=== PATIENT | female | born 1950 | race African-American/Black ===

== ENCOUNTER 2018-09-03 04:12 | Inpatient (IN) | payer OTHER, BC ==
[2018-09-03] MEDS ORDERED: SODIUM CHLORIDE 1,000 ML IV STA (04:38)
[2018-09-03 05:17] LABS: BASO % 1.1 % (0-2.0); EOS % 3.2 % (0-4.5); HEMATOCRIT 34.8 % (32.4-45.2); HEMOGLOBIN 12.1 GM/dL (10.7-15.3); LYMPH % 19.3 % (8-40); MCH 30.9 pg (25.7-33.7); MCHC 34.8 g/dl (32.0-36.0); MEAN CELL VOLUME 88.8 fl (80-96); MEAN PLT VOLUME 8.3 fl (7.5-11.1); MONO % 14.6 % (3.8-10.2); NEUT % 61.8 % (42.8-82.8); PLATELET COUNT 262 K/MM3 (134-434); RBC 3.92 M/mm3 (3.60-5.2); RDW 12.7 % (11.6-15.6); WHITE BLOOD COUNT 3.7 K/mm3 (4.0-10.0)
[2018-09-03 05:33] LABS: INR 1.01 (0.83-1.09); PROTHROMBIN TIME (PATIENT) 11.9 SEC (9.7-13.0)
[2018-09-03 05:35] LABS: ACTIVATED PTT 36.2 SECONDS (25.2-36.5)
[2018-09-03 05:49] LABS: ALBUMIN 3.9 g/dl (3.4-5.0); ALK PHOS 85 U/L (45-117); ANION GAP 8 MMOL/L (8-16); BILIRUBIN,TOTAL 0.3 mg/dL (0.2-1); BLOOD UREA NITROGEN 14 mg/dL (7-18); CALCIUM 8.7 mg/dL (8.5-10.1); CHLORIDE 108 mmol/L (98-107); CO2 27 mmol/L (21-32); CREATININE 0.8 mg/dL (0.55-1.3); GLUCOSE,RANDOM 119 mg/dL (74-106); POTASSIUM 4.4 mmol/L (3.5-5.1); SGOT/AST 29 U/L (15-37); SGPT/ALT 19 U/L (13-61); SODIUM 143 mmol/L (136-145); TOT PROT 7.8 g/dl (6.4-8.2)
--- NOTE | 2018-09-03 06:04 | PDOC ---
Attending Attestation - Resident Resident Name: Paulo Smith - ED Attending Attestation I have performed the following: I have examined & evaluated the patient, The case was reviewed & discussed with the resident, I agree w/resident's findings & plan, Exceptions are as noted - HPI HPI: 09/03/18 07:26 67F pmh of htn, pre-dm here with sudden onset of hemoptysis in the middle of the night. a/w 5 lbs weight loss over the past month and chills w/o fever over the last 2 days. No cough, no sputum, no fever, no sick contacts, no recent travel, not institutionalized, no surgery, no hx of ca - Physicial Exam PE: 09/03/18 07:29 Decreased breath sounds, R>L Increased wob - Medical Decision Making 09/03/18 07:30 Concern for tb, vs pna vs hemorrhage vs ca CTA with possible pna vs hemorrhage per IOC will treat for pna, f/u in house radiology read admit
--- NOTE | 2018-09-03 06:29 | PDOC ---
History of Present Illness - General Chief Complaint: Hemoptysis Stated Complaint: VOMITING BLOOD Time Seen by Provider: 09/03/18 04:16 - History of Present Illness Initial Comments: 09/03/18 06:42 67F with pmh of hypertension and pre-diabetes presents to the ED after awakening in the middle of the coughing a significant amount of blood. This is the first time this ever happens to her. Coughs only blood with little mucus. Also endorses 5lbs weight loss over the past month and chills over the past 2 days. No recent travel, no recent visits from foreign countries, no sick contacts. No recent surgeries, cancer treatments or new medications. Former smoker 30 years ago, 4pack-year Used to work as a nurse, retired. No traumas Past History - Past Medical History Allergies/Adverse Reactions: Allergies Allergy/AdvReac Type Severity Reaction Status Date / Time No Known Allergies Allergy Verified 09/03/18 04:25 Home Medications: Ambulatory Orders Lisinopril 20 mg PO ASDIR 09/03/18 COPD: No DVT: No Dementia: No Diabetes: No (PRE DIABETIC) HTN: Yes - Immunization History Immunization Up to Date: Yes - Suicide/Smoking/Psychosocial Hx Smoking History: Former smoker Have you smoked in the past 12 months: No Information on smoking cessation initiated: No Hx Alcohol Use: No Drug/Substance Use Hx: No *Physical Exam - Vital Signs Last Vital Signs Temp Pulse Resp BP Pulse Ox 97.7 F 91 H 18 142/99 96 09/03/18 06:24 09/03/18 06:24 09/03/18 06:24 09/03/18 06:24 09/03/18 06:24 - Physical Exam General Appearance: Yes: Nourished, Appropriately Dressed. No: Apparent Distress HEENT: positive: EOMI, JHONNY, Other ("congenital "reversed" palate ) Respiratory/Chest: positive: Decreased Breath Sounds. negative: Chest Tender, Respiratory Distress, Labored Respiration Cardiovascular: positive: Regular Rhythm, S1, S2, Tachycardia Gastrointestinal/Abdominal: positive: Normal Bowel Sounds, Flat, Soft. negative : Tender Extremity: positive: Normal Capillary Refill, Normal Inspection, Normal Range of Motion Integumentary: positive: Normal Color, Dry, Warm Neurologic: positive: Fully Oriented, Alert, Normal Mood/Affect, Normal Response , Motor Strength /5 ED Treatment Course - LABORATORY CBC & Chemistry Diagram: 09/03/18 05:00 09/03/18 05:00 - ADDITIONAL ORDERS Additional order review: Laboratory Results 09/03/18 09/03/18 05:00 05:00 PT with INR 11.90 INR 1.01 PTT (Actin FS) 36.2 Sodium 143 Potassium 4.4 Chloride 108 H Carbon Dioxide 27 Anion Gap 8 BUN 14 Creatinine 0.8 Creat Clearance w eGFR 71.99 Random Glucose 119 H Calcium 8.7 Total Bilirubin 0.3 AST 29 ALT 19 Alkaline Phosphatase 85 Total Protein 7.8 Albumin 3.9 09/03/18 05:00 RBC 3.92 MCV 88.8 MCHC 34.8 RDW 12.7 MPV 8.3 Neutrophils % 61.8 Lymphocytes % 19.3 Monocytes % 14.6 H Eosinophils % 3.2 Basophils % 1.1 - RADIOLOGY Radiology Studies Ordered: Category Date Time Status CHEST CTA [CT] Stat CT Scan 09/03/18 05:53 Ordered CHEST PA & LAT [RAD] Stat Radiology 09/03/18 04:41 Taken - Medications Given in the ED: ED Medications Discontinued Medications Generic Name Dose Route Start Last Admin Trade Name Freq PRN Reason Stop Dose Admin Sodium Chloride 1,000 mls @ 1,000 mls/hr 09/03/18 04:38 09/03/18 05:26 Normal Saline - IV 09/03/18 05:37 1,000 mls/hr ASDIR STA Administration Medical Decision Making - Medical Decision Making 09/03/18 07:14 Cancer vs TB vs PE vs other infectious etiology vs mitral stenosis vs toxic inhalation (?patient now remember a weird new oder after they replaced her air bag in her car???) We will investigate tb/cancer with cxr however we are expecting to get a ct chest regardless, possibly CTA if cxr unremarkable to r/o PE No anemia on cbc, wbc 3.7. coags wnl. CXR unremarkable for acute processes. EKG: normal sinus, normal EKG Well's score 5.5, rising suspicion for PE. CTA read pending (imaging land acquisition specialist reads rlq as consolidation/pneumonia) Will treat empirically for pneumonia. Patient signed out to Dr. Szymanski. 09/03/18 07:21 *DC/Admit/Observation/Transfer Diagnosis at time of Disposition: Hemoptysis - Referrals - Patient Instructions - Post Discharge Activity
[2018-09-03] MEDS ORDERED: CEFTRIAXONE 1 GM in DEXTROSE 5%-WATER - 100 ML IVPB ONE (07:00)
[2018-09-03] MEDS ORDERED: AZITHROMYCIN IVPB 500 MG in DEXTROSE 5%-WATER - 250 ML IVPB ONE (07:00)
--- NOTE | 2018-09-03 07:19 | PDOC ---
*Physical Exam - Vital Signs Last Vital Signs Temp Pulse Resp BP Pulse Ox 97.7 F 91 H 18 142/99 96 09/03/18 06:24 09/03/18 06:24 09/03/18 06:24 09/03/18 06:24 09/03/18 06:24 - Physical Exam Respiratory/Chest: positive: Rapid RR, Crackles (right mid and lower). negative : Chest Tender, Lungs Clear, Normal Breath Sounds, Respiratory Distress, Accessory Muscle Use, Labored Respiration, Rhonchi, Stridor, Wheezing ED Treatment Course - LABORATORY CBC & Chemistry Diagram: 09/03/18 05:00 09/03/18 05:00 - ADDITIONAL ORDERS Additional order review: Laboratory Results 09/03/18 09/03/18 05:00 05:00 PT with INR 11.90 INR 1.01 PTT (Actin FS) 36.2 Sodium 143 Potassium 4.4 Chloride 108 H Carbon Dioxide 27 Anion Gap 8 BUN 14 Creatinine 0.8 Creat Clearance w eGFR 71.99 Random Glucose 119 H Calcium 8.7 Total Bilirubin 0.3 AST 29 ALT 19 Alkaline Phosphatase 85 Total Protein 7.8 Albumin 3.9 09/03/18 05:00 RBC 3.92 MCV 88.8 MCHC 34.8 RDW 12.7 MPV 8.3 Neutrophils % 61.8 Lymphocytes % 19.3 Monocytes % 14.6 H Eosinophils % 3.2 Basophils % 1.1 - Medications Given in the ED: ED Medications Discontinued Medications Generic Name Dose Route Start Last Admin Trade Name Freq PRN Reason Stop Dose Admin Sodium Chloride 1,000 mls @ 1,000 mls/hr 09/03/18 04:38 09/03/18 05:26 Normal Saline - IV 09/03/18 05:37 1,000 mls/hr ASDIR STA Administration Medical Decision Making - Medical Decision Making Patient signed out to me from night team pending CTA read - CTA shows R mid and lower consolidation suggestive of PNA 67F with pmh of hypertension and pre-diabetes presents to the ED after awakening in the middle of the coughing a significant amount of blood. VS: Tachycardic, tachypneic, hypertensive WBC - 3.7 CTA - RLL PNA - Patient to receive Abx in ED and then admitted to hospital for further care PCP: Williams - admits to [facility] Montgomery Call placed to Dr. Montgomery's service for admission. Bobby - the power plant operator apprentice for Dr. Montgomery's service says that hospitalist is injection molding machine setter for Dr. Montgomery Hospitalist responded saying patient will be admitted to [facility] at [address] Montgomery's office for admission at 9 am Patient accepted to Dr[address] Montgomery's service. *DC/Admit/Observation/Transfer Diagnosis at time of Disposition: Hemoptysis, Right lower lobe pneumonia, Right middle lobe pneumonia - Discharge Dispostion Condition at time of disposition: Stable Decision to Admit order: Yes - Referrals - Patient Instructions - Post Discharge Activity
[2018-09-03] MEDS ORDERED: AZITHROMYCIN IVPB 500 MG/250 ML BAG IVPB ONE (08:41)
[2018-09-03] MEDS ORDERED: CEFTRIAXONE 1 GM/50 ML BAG ONE (08:41)
--- NOTE | 2018-09-03 10:20 | EKG ---
Test Reason : Blood Pressure : / mmHG Vent. Rate : 092 BPM Atrial Rate : 092 BPM P-R Int : 130 ms QRS Dur : 094 ms QT Int : 358 ms P-R-T Axes : 060 010 028 degrees QTc Int : 442 ms NORMAL SINUS RHYTHM NORMAL ECG NO PREVIOUS ECGS AVAILABLE Confirmed by MARK KEITH, TOM ([id number]) on 09/03/2018 10:20:40 AM Referred By: Confirmed By:TOM FLORES MD
[2018-09-03] MEDS ORDERED: ACETAMINOPHEN 325 MG TABLET (FP) PO PRN (11:48)
--- NOTE | 2018-09-03 11:56 | HP ---
Admitting History and Physical - Primary Care Physician PCP: Lynnette Kramer - Admission Chief Complaint: coughing blood History of Present Illness: patient seen and examined by me in the emergency room Chart reviewed and case discussed with emergency room physician Emergency room records--- and I concur 67F with pmh of hypertension and pre-diabetes presents to the ED after awakening in the middle of the coughing a significant amount of blood. This is the first time this ever happens to her. Coughs only blood with little mucus. Also endorses 5lbs weight loss over the past month and chills over the past 2 days. No recent travel, no recent visits from foreign countries, no sick contacts. No recent surgeries, cancer treatments or new medications. Former smoker 30 years ago, 4pack-year Used to work as a nurse, retired. CTA done in the ER----was negative for pulmonary embolism Showed right middle and lower lobe pneumonia Given Rocephin and Zithromax in the emergency room To BE admitted to the floor Patient comfortable feels better Denies chest pain Breathing okay History Source: Patient Limitations to Obtaining History: No Limitations - Smoking History Smoking history: Former smoker Have you smoked in the past 12 months: No - Alcohol/Substance Use Hx Alcohol Use: No Home Medications - Allergies Allergies/Adverse Reactions: Allergies Allergy/AdvReac Type Severity Reaction Status Date / Time No Known Allergies Allergy Verified 09/03/18 04:25 - Home Medications Home Medications: Ambulatory Orders Lisinopril 20 mg PO ASDIR 09/03/18 Review of Systems Findings/Remarks: see [place] Physical Examination Vital Signs: Vital Signs Temperature 98.9 F 09/03/18 11:30 Pulse Rate 91 H 09/03/18 06:24 Respiratory Rate 18 09/03/18 06:24 Blood Pressure 142/99 09/03/18 06:24 O2 Sat by Pulse Oximetry (%) 96 09/03/18 06:24 Constitutional: Yes: No Distress, Calm Eyes: Yes: Conjunctiva Clear HENT: Yes: Other (throat clear) Neck: Yes: Supple Cardiovascular: Yes: Regular Rate and Rhythm Respiratory: Yes: Diminished Gastrointestinal: Yes: Normal Bowel Sounds, Soft Edema: No Neurological: Yes: Alert Psychiatric: Yes: Alert Labs: CBC, BMP 09/03/18 05:00 09/03/18 05:00 Imaging - Results Chest X-ray: Report Reviewed Cat Scan: Report Reviewed EKG: Report Reviewed Problem List - Problems (1) Hemoptysis Code(s): R04.2 - HEMOPTYSIS (2) Right lower lobe pneumonia Code(s): J18.1 - LOBAR PNEUMONIA, UNSPECIFIED ORGANISM (3) Right middle lobe pneumonia Code(s): J18.1 - LOBAR PNEUMONIA, UNSPECIFIED ORGANISM Assessment/Plan Abx currently kept in isolation ppd legionella/ mycoplasma dvt prophylaxis-- scd gi prophylaxis f/u labs. will follow Discussed with er physician and Rn in er
--- NOTE | 2018-09-03 16:27 | CON.ID ---
Consult Consult Specialty:: infectious diseases Referred by:: Reason for Consultation:: pneumonia - History of Present Illness Chief Complaint: sob and hemoptysis History of Present Illness: patient who is a retired nurse coming in with hemoptysis 67F with pmh of hypertension and pre-diabetes presents to the ED after awakening in the middle of the coughing a significant amount of blood. according to the patient she has never had this episode and also she was not feeling sick at all. she has a history of gerd and has lost about 5 pounds no sick contacts,no travel overall she has been doing well no h/o of tb in the family In the Er patient was worked up and found to have pneumonia and no cavity currently she feels better but has been coughing up blood which has decreased patient has remote smoking history - History Source History Provided By: Patient Limitations to Obtaining History: No Limitations - Alcohol/Substance Use Hx Alcohol Use: No - Smoking History Smoking history: Former smoker Have you smoked in the past 12 months: No Home Medications - Allergies Allergies/Adverse Reactions: Allergies Allergy/AdvReac Type Severity Reaction Status Date / Time No Known Allergies Allergy Verified 09/03/18 04:25 - Home Medications Home Medications: Ambulatory Orders RX: Lisinopril 20 mg PO ASDIR 09/03/18 Review of Systems - Review of Systems Constitutional: reports: No Symptoms Eyes: reports: No Symptoms HENT: reports: No Symptoms Neck: reports: No Symptoms Cardiovascular: reports: No Symptoms Respiratory: reports: Cough, Hemoptysis Gastrointestinal: reports: Other (gerd) Genitourinary: reports: No Symptoms Musculoskeletal: reports: No Symptoms Integumentary: reports: No Symptoms Neurological: reports: No Symptoms Endocrine: reports: No Symptoms Hematology/Lymphatic: reports: No Symptoms Psychiatric: reports: No Symptoms Physical Exam Vital Signs: Vital Signs Temperature 98.9 F 09/03/18 11:30 Pulse Rate 91 H 09/03/18 06:24 Respiratory Rate 18 09/03/18 06:24 Blood Pressure 142/99 09/03/18 06:24 O2 Sat by Pulse Oximetry (%) 96 09/03/18 09:00 Constitutional: Yes: Well Nourished, No Distress, Calm Eyes: Yes: Conjunctiva Clear HENT: Yes: Atraumatic, Normocephalic Neck: Yes: Supple, Trachea Midline Cardiovascular: Yes: Regular Rate and Rhythm Respiratory: Yes: Regular, Poor Air Entry (at the bases), Other (hemoptysis) Gastrointestinal: Yes: Normal Bowel Sounds, Soft Musculoskeletal: Yes: WNL Extremities: Yes: WNL Neurological: Yes: Alert, Oriented Psychiatric: Yes: Alert, Oriented Labs: CBC, BMP 09/03/18 05:00 09/03/18 05:00 Imaging - Results Chest X-ray: Report Reviewed, Image Reviewed Cat Scan: Report Reviewed, Image Reviewed Assessment/Plan Problem List - Problems (1) GERD (gastroesophageal reflux disease) Code(s): K21.9 - GASTRO-ESOPHAGEAL REFLUX DISEASE WITHOUT ESOPHAGITIS (2) HLD (hyperlipidemia) Code(s): E78.5 - HYPERLIPIDEMIA, UNSPECIFIED (3) Hemoptysis Code(s): R04.2 - HEMOPTYSIS (4) Pre-diabetes Code(s): R73.03 - PREDIABETES (5) Right lower lobe pneumonia Code(s): J18.1 - LOBAR PNEUMONIA, UNSPECIFIED ORGANISM (6) Right middle lobe pneumonia Code(s): J18.1 - LOBAR PNEUMONIA, UNSPECIFIED ORGANISM plan will start patient on zosyn await for all cx reports monitor for bleeding closely ppd has been placed--need to be read rest as per the team
--- NOTE | 2018-09-03 22:34 | HP ---
Admitting History and Physical - Primary Care Physician PCP: Lynnette Kramer - Admission Chief Complaint: Cough/Vomitting Blood History of Present Illness: 67F with pmh of hypertension PreDiabetes,HLD,Vit D deficiency,H/O Rt Leg Fracture,GERD and pre-diabetes presents to the ED after awakening in the middle of the coughing a significant amount of blood. This is the first time this ever happens to her. Coughs only blood with little mucus. Also endorses 5lbs weight loss over the past month and chills over the past 2 days. No recent travel, no recent visits from foreign countries, no sick contacts. No recent surgeries, cancer treatments or new medications. Former smoker 30 years ago, 4pack-year History Source: Patient Limitations to Obtaining History: No Limitations - Past Medical History Cardiovascular: Yes: HTN Gastrointestinal: Yes: Other (GERD) - Smoking History Smoking history: Former smoker Have you smoked in the past 12 months: No - Alcohol/Substance Use Hx Alcohol Use: No Home Medications - Allergies Allergies/Adverse Reactions: Allergies Allergy/AdvReac Type Severity Reaction Status Date / Time No Known Allergies Allergy Verified 09/03/18 04:25 - Home Medications Home Medications: Ambulatory Orders Lisinopril 20 mg PO ASDIR 09/03/18 Review of Systems - Review of Systems Constitutional: reports: No Symptoms Eyes: reports: No Symptoms HENT: reports: Other (spitting blood) Neck: reports: No Symptoms Cardiovascular: reports: Other (No chest pain) Respiratory: reports: Other (No SOB) Gastrointestinal: reports: Vomiting Blood Breasts: reports: No Symptoms Reported Musculoskeletal: reports: No Symptoms Neurological: reports: No Symptoms Physical Examination Vital Signs: Vital Signs Temperature 98.1 F 09/03/18 21:31 Pulse Rate 93 H 09/03/18 21:31 Respiratory Rate 18 09/03/18 21:31 Blood Pressure 150/98 09/03/18 21:31 O2 Sat by Pulse Oximetry (%) 94 L 09/03/18 21:31 Constitutional: Yes: Anxious Eyes: Yes: Conjunctiva Clear, EOM Intact HENT: Yes: Atraumatic, Normocephalic Neck: Yes: Supple, Trachea Midline Cardiovascular: Yes: Regular Rate and Rhythm, S1, S2 Respiratory: Yes: Regular, CTA Bilaterally Gastrointestinal: Yes: Normal Bowel Sounds, Soft Edema: No Peripheral Pulses WNL: Yes Labs: CBC, BMP 09/03/18 05:00 09/03/18 05:00 Problem List - Problems (1) Hemoptysis Code(s): R04.2 - HEMOPTYSIS (2) Right lower lobe pneumonia Code(s): J18.1 - LOBAR PNEUMONIA, UNSPECIFIED ORGANISM (3) Right middle lobe pneumonia Code(s): J18.1 - LOBAR PNEUMONIA, UNSPECIFIED ORGANISM (4) GERD (gastroesophageal reflux disease) Code(s): K21.9 - GASTRO-ESOPHAGEAL REFLUX DISEASE WITHOUT ESOPHAGITIS Qualifiers: Esophagitis presence: esophagitis presence not specified Qualified Code(s) : K21.9 - Gastro-esophageal reflux disease without esophagitis (5) HLD (hyperlipidemia) Code(s): E78.5 - HYPERLIPIDEMIA, UNSPECIFIED (6) Hypertension Code(s): I10 - ESSENTIAL (PRIMARY) HYPERTENSION (7) Pre-diabetes Code(s): R73.03 - PREDIABETES (8) Anemia Code(s): D64.9 - ANEMIA, UNSPECIFIED (9) Occult blood in stools Code(s): R19.5 - OTHER FECAL ABNORMALITIES Assessment/Plan (1) Right lower lobe pneumonia Code(s): J18.1 - LOBAR PNEUMONIA, UNSPECIFIED ORGANISM (2) Right middle lobe pneumonia Code(s): J18.1 - LOBAR PNEUMONIA, UNSPECIFIED ORGANISM (3) Hemoptysis Code(s): R04.2 - HEMOPTYSIS (4) Pre-diabetes Code(s): R73.03 - PREDIABETES (5) HLD (hyperlipidemia) Code(s): E78.5 - HYPERLIPIDEMIA, UNSPECIFIED (6) Fibula fracture Code(s): S82.409A - UNSP FRACTURE OF SHAFT OF UNSP FIBULA, INIT FOR CLOS FX (7) GERD (gastroesophageal reflux disease) Code(s): K21.9 - GASTRO-ESOPHAGEAL REFLUX DISEASE WITHOUT ESOPHAGITIS Pt is in Isolation BC/UC ID consult noted we will have Pul/GI /ENT Eval
[2018-09-03] MEDS: POTASSIUM CHLORIDE 10 MEQ in SODIUM CHLORIDE 0.45% 1,000 ML IVPB SCH (22:45)
[2018-09-03 22:47] VITALS: BMI 27.6
[2018-09-03] MEDS: PIPERACILLIN/TAZOB 3.375 GM 3.375 GM in DEXTROSE 5%-WATER - 50 ML IVPB SCH (22:50)
[2018-09-04] MEDS ORDERED: PIPERACILLIN/TAZOBACTAM 3.375 GM VIAL IVPB ONE ×4 (03:08→23:37)
[2018-09-04] MEDS ORDERED: DEXTROSE 5%-WATER - 50 ML IVPB ONE ×4 (03:08→23:37)
[2018-09-04] MEDS: PIPERACILLIN/TAZOB 3.375 GM 3.375 GM in DEXTROSE 5%-WATER - 50 ML IVPB SCH ×3 (03:28→17:54)
[2018-09-04 08:04] LABS: BASO % 1.2 % (0-2.0); EOS % 6.2 % (0-4.5); HEMATOCRIT 27.3 % (32.4-45.2); HEMOGLOBIN 9.6 GM/dL (10.7-15.3); LYMPH % 16.3 % (8-40); MEAN CELL VOLUME 88.4 fl (80-96); MEAN PLT VOLUME 8.6 fl (7.5-11.1); MONO % 15.3 % (3.8-10.2); PLATELET COUNT 220 K/MM3 (134-434); RBC 3.09 M/mm3 (3.60-5.2); RDW 13.2 % (11.6-15.6); WHITE BLOOD COUNT 3.4 K/mm3 (4.0-10.0)
[2018-09-04 08:47] LABS: ALBUMIN 3.3 g/dl (3.4-5.0); ALK PHOS 54 U/L (45-117); ANION GAP 7 MMOL/L (8-16); BILIRUBIN,TOTAL 0.6 mg/dL (0.2-1); BLOOD UREA NITROGEN 11 mg/dL (7-18); CALCIUM 8.3 mg/dL (8.5-10.1); CHLORIDE 110 mmol/L (98-107); CO2 25 mmol/L (21-32); CREATININE 0.7 mg/dL (0.55-1.3); GLUCOSE,RANDOM 93 mg/dL (74-106); POTASSIUM 3.8 mmol/L (3.5-5.1); SGOT/AST 14 U/L (15-37); SGPT/ALT 15 U/L (13-61); SODIUM 142 mmol/L (136-145); TOT PROT 6.5 g/dl (6.4-8.2)
--- NOTE | 2018-09-04 09:01 | PN ---
Progress Note, Physician History of Present Illness: Pt is admitted fot hemoptysis No Fever No SOB - Current Medication List Current Medications: Active Medications Acetaminophen (Tylenol -) 650 mg PO Q4H PRN PRN Reason: PAIN LEVEL 1-5 Piperacillin Sod/Tazobactam (Sod 3.375 gm/ Dextrose) 50 mls @ 100 mls/hr IVPB Q8H-IV ALLEN; Protocol Last Admin: 09/04/18 03:28 Dose: 100 mls/hr Potassium Chloride 10 meq/ (Sodium Chloride) 1,005 mls @ 75 mls/hr IVPB Q13H [facility] Last Admin: 09/03/18 22:45 Dose: 75 mls/hr Lisinopril (Prinivil) 20 mg PO DAILY [facility] Pantoprazole Sodium (Protonix -) 20 mg PO DAILY [facility] - Objective Vital Signs: Vital Signs Temperature 98.2 F 09/04/18 07:11 Pulse Rate 84 09/04/18 07:11 Respiratory Rate 20 09/04/18 07:11 Blood Pressure 126/76 09/04/18 07:11 O2 Sat by Pulse Oximetry (%) 94 L 09/03/18 21:31 Constitutional: Yes: Calm Eyes: Yes: Conjunctiva Clear, EOM Intact HENT: Yes: Atraumatic, Normocephalic Neck: Yes: Supple, Trachea Midline Cardiovascular: Yes: Regular Rate and Rhythm, S1, S2 Respiratory: Yes: Regular, CTA Bilaterally Gastrointestinal: Yes: Normal Bowel Sounds, Soft Edema: No Labs: CBC, BMP 09/04/18 06:30 09/04/18 06:30 INR, PTT INR 1.01 (0.83-1.09) 09/03/18 05:00 Problem List - Problems (1) Right lower lobe pneumonia Code(s): J18.1 - LOBAR PNEUMONIA, UNSPECIFIED ORGANISM (2) Right middle lobe pneumonia Code(s): J18.1 - LOBAR PNEUMONIA, UNSPECIFIED ORGANISM (3) Hemoptysis Code(s): R04.2 - HEMOPTYSIS (4) Pre-diabetes Code(s): R73.03 - PREDIABETES (5) HLD (hyperlipidemia) Code(s): E78.5 - HYPERLIPIDEMIA, UNSPECIFIED (6) Fibula fracture Code(s): S82.409A - UNSP FRACTURE OF SHAFT OF UNSP FIBULA, INIT FOR CLOS FX (7) GERD (gastroesophageal reflux disease) Code(s): K21.9 - GASTRO-ESOPHAGEAL REFLUX DISEASE WITHOUT ESOPHAGITIS Assessment/Plan (1) Right lower lobe pneumonia Code(s): J18.1 - LOBAR PNEUMONIA, UNSPECIFIED ORGANISM (2) Right middle lobe pneumonia Code(s): J18.1 - LOBAR PNEUMONIA, UNSPECIFIED ORGANISM (3) Hemoptysis Code(s): R04.2 - HEMOPTYSIS (4) Pre-diabetes Code(s): R73.03 - PREDIABETES (5) HLD (hyperlipidemia) Code(s): E78.5 - HYPERLIPIDEMIA, UNSPECIFIED (6) Fibula fracture Code(s): S82.409A - UNSP FRACTURE OF SHAFT OF UNSP FIBULA, INIT FOR CLOS FX (7) GERD (gastroesophageal reflux disease) Code(s): K21.9 - GASTRO-ESOPHAGEAL REFLUX DISEASE WITHOUT ESOPHAGITIS
[2018-09-04] MEDS: LISINOPRIL 20 MG TABLET (FP) PO SCH (10:37)
[2018-09-04] MEDS: PANTOPRAZOLE 20 MG TABLET (FP) PO SCH (10:38)
[2018-09-04] MEDS: POTASSIUM CHLORIDE 10 MEQ in SODIUM CHLORIDE 0.45% 1,000 ML IVPB SCH (14:37)
--- NOTE | 2018-09-04 19:25 | PN ---
Progress Note, Physician History of Present Illness: Pt seen and examined, events noted, labs/imaging results reviewed. She states she feels better, sputum only mildly blood streaked today. Remains afebrile, without distress. Has no specific complaints. No induration in Lt forearm PPD site in 24h. - Current Medication List Current Medications: Active Medications Acetaminophen (Tylenol -) 650 mg PO Q4H PRN PRN Reason: PAIN LEVEL 1-5 Piperacillin Sod/Tazobactam (Sod 3.375 gm/ Dextrose) 50 mls @ 100 mls/hr IVPB Q8H-IV [facility]; Protocol Last Admin: 09/04/18 17:54 Dose: 100 mls/hr Potassium Chloride 10 meq/ (Sodium Chloride) 1,005 mls @ 75 mls/hr IVPB Q13H [facility] Last Admin: 09/04/18 14:37 Dose: 75 mls/hr Lisinopril (Prinivil) 20 mg PO DAILY [facility] Last Admin: 09/04/18 10:37 Dose: 20 mg Pantoprazole Sodium (Protonix -) 20 mg PO DAILY [facility] Last Admin: 09/04/18 10:38 Dose: 20 mg - Objective Vital Signs: Vital Signs Temperature 98.6 F 09/04/18 09:00 Pulse Rate 72 09/04/18 09:00 Respiratory Rate 20 09/04/18 09:00 Blood Pressure 134/76 09/04/18 09:00 O2 Sat by Pulse Oximetry (%) 94 L 09/03/18 21:31 Constitutional: Yes: No Distress, Calm Cardiovascular: Yes: Regular Rate and Rhythm Respiratory: Yes: Rales (Rt lower lung) Gastrointestinal: Yes: Normal Bowel Sounds, Soft Genitourinary: Yes: WNL Extremities: Yes: WNL Integumentary: Yes: WNL, Other Neurological: Yes: Alert Labs: CBC, BMP 09/04/18 06:30 09/04/18 06:30 INR, PTT INR 1.01 (0.83-1.09) 09/03/18 05:00 Microbiology 09/03/18 08:40 Blood - Peripheral Venous Blood Culture - Preliminary NO GROWTH OBTAINED AFTER 24 HOURS, INCUBATION TO CONTINUE FOR 4 DAYS. 09/03/18 08:30 Blood - Peripheral Venous Blood Culture - Preliminary NO GROWTH OBTAINED AFTER 24 HOURS, INCUBATION TO CONTINUE FOR 4 DAYS. - ....Imaging Cat Scan: Report Reviewed Problem List - Problems (1) GERD (gastroesophageal reflux disease) Code(s): K21.9 - GASTRO-ESOPHAGEAL REFLUX DISEASE WITHOUT ESOPHAGITIS (2) HLD (hyperlipidemia) Code(s): E78.5 - HYPERLIPIDEMIA, UNSPECIFIED (3) Hemoptysis Code(s): R04.2 - HEMOPTYSIS (4) Pre-diabetes Code(s): R73.03 - PREDIABETES (5) Right lower lobe pneumonia Code(s): J18.1 - LOBAR PNEUMONIA, UNSPECIFIED ORGANISM (6) Right middle lobe pneumonia Code(s): J18.1 - LOBAR PNEUMONIA, UNSPECIFIED ORGANISM Assessment/Plan Acute Hemoptysis RML/RLL PNA HTN -- pt reporting decrease in hemoptysis, sputum slightly blood streaked -- remains afebrile, without respiratory distress -- blood cultures neg 24 hr -- continue antibiotics -- read PPD tomorrow, no induration in 24h -- sputum cultures, urinary ag for legionella/strep continue monitor
[2018-09-05] MEDS: PIPERACILLIN/TAZOB 3.375 GM 3.375 GM in DEXTROSE 5%-WATER - 50 ML IVPB SCH ×3 (01:36→18:01)
[2018-09-05] MEDS: POTASSIUM CHLORIDE 10 MEQ in SODIUM CHLORIDE 0.45% 1,000 ML IVPB SCH ×3 (01:39→13:47)
[2018-09-05 08:26] LABS: BASO % 1.4 % (0-2.0); EOS % 6.9 % (0-4.5); HEMATOCRIT 27.6 % (32.4-45.2); HEMOGLOBIN 9.3 GM/dL (10.7-15.3); LYMPH % 16.5 % (8-40); MCH 30.3 pg (25.7-33.7); MCHC 33.8 g/dl (32.0-36.0); MEAN CELL VOLUME 89.7 fl (80-96); MEAN PLT VOLUME 8.3 fl (7.5-11.1); MONO % 14.1 % (3.8-10.2); NEUT % 61.1 % (42.8-82.8); PLATELET COUNT 221 K/MM3 (134-434); RBC 3.08 M/mm3 (3.60-5.2); RDW 12.8 % (11.6-15.6); WHITE BLOOD COUNT 3.1 K/mm3 (4.0-10.0)
[2018-09-05 08:44] LABS: ANION GAP 5 MMOL/L (8-16); BLOOD UREA NITROGEN 7 mg/dL (7-18); CALCIUM 8.4 mg/dL (8.5-10.1); CHLORIDE 112 mmol/L (98-107); CO2 25 mmol/L (21-32); CREATININE 0.8 mg/dL (0.55-1.3); GLUCOSE,RANDOM 95 mg/dL (74-106); SODIUM 142 mmol/L (136-145)
[2018-09-05] MEDS ORDERED: PIPERACILLIN/TAZOBACTAM 3.375 GM VIAL IVPB ONE ×3 (09:42→23:43)
[2018-09-05] MEDS ORDERED: DEXTROSE 5%-WATER - 50 ML IVPB ONE ×3 (09:43→23:43)
[2018-09-05] MEDS: PANTOPRAZOLE 20 MG TABLET (FP) PO SCH (10:17)
[2018-09-05] MEDS: LISINOPRIL 20 MG TABLET (FP) PO SCH (10:17)
[2018-09-05 12:38] LABS: ERYTHROCYTE SEDIMENTATION RATE 53 mm/hr (0-30)
--- NOTE | 2018-09-05 18:00 | PN ---
Progress Note, Physician History of Present Illness: Pt without respiratory distress, remains afebrile. States she appears to have hemoptysis only when she sits up to cough, other times sputum is clear. PPD neg. Has no other complaints. - Current Medication List Current Medications: Active Medications Acetaminophen (Tylenol -) 650 mg PO Q4H PRN PRN Reason: PAIN LEVEL 1-5 Piperacillin Sod/Tazobactam (Sod 3.375 gm/ Dextrose) 50 mls @ 100 mls/hr IVPB Q8H-IV [facility]; Protocol Last Admin: 09/05/18 10:17 Dose: 100 mls/hr Potassium Chloride 10 meq/ (Sodium Chloride) 1,005 mls @ 75 mls/hr IVPB Q13H [facility] Last Admin: 09/05/18 13:47 Dose: Not Given Lisinopril (Prinivil) 20 mg PO DAILY [facility] Last Admin: 09/05/18 10:17 Dose: 20 mg Pantoprazole Sodium (Protonix -) 20 mg PO DAILY [facility] Last Admin: 09/05/18 10:17 Dose: 20 mg - Objective Vital Signs: Vital Signs Temperature 98.2 F 09/05/18 15:23 Pulse Rate 110 H 09/05/18 15:23 Respiratory Rate 18 09/05/18 15:23 Blood Pressure 135/55 L 09/05/18 06:36 O2 Sat by Pulse Oximetry (%) 95 09/05/18 09:00 Constitutional: Yes: No Distress, Calm Eyes: Yes: Conjunctiva Clear Cardiovascular: Yes: Regular Rate and Rhythm Respiratory: Yes: Rales (RT mid/lower lung) Gastrointestinal: Yes: Normal Bowel Sounds, Soft Genitourinary: Yes: WNL Extremities: Yes: WNL Integumentary: Yes: WNL Neurological: Yes: Alert, Oriented Labs: CBC, BMP 09/05/18 07:00 09/05/18 07:00 INR, PTT INR 1.01 (0.83-1.09) 09/03/18 05:00 Microbiology 09/04/18 18:05 Urine For Antigen Detection Legionella Antigen - Final 09/04/18 18:05 Urine For Antigen Detection Streptococcus pneumoniae Antigen (M - Final 09/03/18 08:40 Blood - Peripheral Venous Blood Culture - Preliminary NO GROWTH OBTAINED AFTER 48 HOURS, INCUBATION TO CONTINUE FOR 3 DAYS. 09/03/18 08:30 Blood - Peripheral Venous Blood Culture - Preliminary NO GROWTH OBTAINED AFTER 48 HOURS, INCUBATION TO CONTINUE FOR 3 DAYS. - ....Imaging Cat Scan: Report Reviewed Problem List - Problems (1) GERD (gastroesophageal reflux disease) Code(s): K21.9 - GASTRO-ESOPHAGEAL REFLUX DISEASE WITHOUT ESOPHAGITIS (2) HLD (hyperlipidemia) Code(s): E78.5 - HYPERLIPIDEMIA, UNSPECIFIED (3) Hemoptysis Code(s): R04.2 - HEMOPTYSIS (4) Pre-diabetes Code(s): R73.03 - PREDIABETES (5) Right lower lobe pneumonia Code(s): J18.1 - LOBAR PNEUMONIA, UNSPECIFIED ORGANISM (6) Right middle lobe pneumonia Code(s): J18.1 - LOBAR PNEUMONIA, UNSPECIFIED ORGANISM Assessment/Plan Acute Hemoptysis RML/RLL PNA HTN GERD -- Pt afebrile, without respiratory distress, TB less likely -- PPD neg -- d/c isolation -- Pulmonary evaluation, consider bronchoscopy -- GI evaluation -- continue antibiotics -- f/u sputum cultures continue monitor, pt currently stable
--- NOTE | 2018-09-05 18:10 | PN ---
Progress Note, Physician History of Present Illness: Pt is still having Hemoptysis But less discussed with ID. Pt has Drop in Hb/Hct - Current Medication List Current Medications: Active Medications Acetaminophen (Tylenol -) 650 mg PO Q4H PRN PRN Reason: PAIN LEVEL 1-5 Piperacillin Sod/Tazobactam (Sod 3.375 gm/ Dextrose) 50 mls @ 100 mls/hr IVPB Q8H-IV [facility]; Protocol Last Admin: 09/05/18 18:01 Dose: 100 mls/hr Potassium Chloride 10 meq/ (Sodium Chloride) 1,005 mls @ 75 mls/hr IVPB Q13H [facility] Last Admin: 09/05/18 13:47 Dose: Not Given Lisinopril (Prinivil) 20 mg PO DAILY [facility] Last Admin: 09/05/18 10:17 Dose: 20 mg Pantoprazole Sodium (Protonix -) 20 mg PO DAILY [facility] Last Admin: 09/05/18 10:17 Dose: 20 mg - Objective Vital Signs: Vital Signs Temperature 98.2 F 09/05/18 15:23 Pulse Rate 110 H 09/05/18 15:23 Respiratory Rate 18 09/05/18 15:23 Blood Pressure 135/55 L 09/05/18 06:36 O2 Sat by Pulse Oximetry (%) 95 09/05/18 09:00 Constitutional: Yes: No Distress Eyes: Yes: Conjunctiva Clear, EOM Intact HENT: Yes: Atraumatic, Normocephalic Neck: Yes: Supple, Trachea Midline Cardiovascular: Yes: Regular Rate and Rhythm, S1, S2 Respiratory: Yes: Regular, CTA Bilaterally Gastrointestinal: Yes: Normal Bowel Sounds, Soft Labs: CBC, BMP 09/05/18 07:00 09/05/18 07:00 INR, PTT INR 1.01 (0.83-1.09) 09/03/18 05:00 Problem List - Problems (1) Right lower lobe pneumonia Code(s): J18.1 - LOBAR PNEUMONIA, UNSPECIFIED ORGANISM (2) Right middle lobe pneumonia Code(s): J18.1 - LOBAR PNEUMONIA, UNSPECIFIED ORGANISM (3) Hemoptysis Code(s): R04.2 - HEMOPTYSIS (4) Pre-diabetes Code(s): R73.03 - PREDIABETES (5) HLD (hyperlipidemia) Code(s): E78.5 - HYPERLIPIDEMIA, UNSPECIFIED (6) Fibula fracture Code(s): S82.409A - UNSP FRACTURE OF SHAFT OF UNSP FIBULA, INIT FOR CLOS FX (7) GERD (gastroesophageal reflux disease) Code(s): K21.9 - GASTRO-ESOPHAGEAL REFLUX DISEASE WITHOUT ESOPHAGITIS Assessment/Plan (1) Right lower lobe pneumonia Code(s): J18.1 - LOBAR PNEUMONIA, UNSPECIFIED ORGANISM (2) Right middle lobe pneumonia Code(s): J18.1 - LOBAR PNEUMONIA, UNSPECIFIED ORGANISM (3) Hemoptysis Code(s): R04.2 - HEMOPTYSIS (4) Pre-diabetes Code(s): R73.03 - PREDIABETES (5) HLD (hyperlipidemia) Code(s): E78.5 - HYPERLIPIDEMIA, UNSPECIFIED (6) Fibula fracture Code(s): S82.409A - UNSP FRACTURE OF SHAFT OF UNSP FIBULA, INIT FOR CLOS FX (7) GERD (gastroesophageal reflux disease) Code(s): K21.9 - GASTRO-ESOPHAGEAL REFLUX DISEASE WITHOUT ESOPHAGITIS Pt is in Isolation BC/UC PPD is negative Spoke with Id Pt will have CT sinuses ENT Eval R/O Nasopharyngeal/Laryngeal malignacy Pulmonary: R/O malignacy GI eval to R/O malignacy CT sinuses also
[2018-09-06] MEDS: POTASSIUM CHLORIDE 10 MEQ in SODIUM CHLORIDE 0.45% 1,000 ML IVPB SCH ×3 (00:01→15:09)
[2018-09-06] MEDS: PIPERACILLIN/TAZOB 3.375 GM 3.375 GM in DEXTROSE 5%-WATER - 50 ML IVPB SCH ×3 (01:38→17:34)
[2018-09-06 07:02] LABS: BASO % 1.1 % (0-2.0); EOS % 6.1 % (0-4.5); HEMATOCRIT 25.9 % (32.4-45.2); LYMPH % 15.4 % (8-40); MCHC 34.7 g/dl (32.0-36.0); MEAN CELL VOLUME 89.4 fl (80-96); MEAN PLT VOLUME 8.4 fl (7.5-11.1); MONO % 13.8 % (3.8-10.2); NEUT % 63.6 % (42.8-82.8); PLATELET COUNT 220 K/MM3 (134-434); RDW 12.7 % (11.6-15.6); WHITE BLOOD COUNT 3.5 K/mm3 (4.0-10.0)
[2018-09-06 07:37] LABS: ANION GAP 4 MMOL/L (8-16); BLOOD UREA NITROGEN 9 mg/dL (7-18); CALCIUM 8.4 mg/dL (8.5-10.1); CHLORIDE 112 mmol/L (98-107); CO2 26 mmol/L (21-32); GLUCOSE,RANDOM 89 mg/dL (74-106); POTASSIUM 3.9 mmol/L (3.5-5.1); SODIUM 142 mmol/L (136-145)
[2018-09-06] MEDS ORDERED: PIPERACILLIN/TAZOBACTAM 3.375 GM VIAL IVPB ONE ×2 (08:55→17:28)
[2018-09-06] MEDS ORDERED: DEXTROSE 5%-WATER - 50 ML IVPB ONE ×2 (08:55→17:28)
[2018-09-06] MEDS: PANTOPRAZOLE 20 MG TABLET (FP) PO SCH ×2 (09:01→21:54)
[2018-09-06] MEDS: LISINOPRIL 20 MG TABLET (FP) PO SCH (09:01)
--- NOTE | 2018-09-06 10:16 | CON.PULM ---
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 Hypertension and "pre"-diabetes. Admitted via the ER due to coughing a "significant" amount of blood tinged sputum. Reports about a small jhonny cup. No previous episodes of similar. No epistaxis or gum bleeding. No hematamesis. No travel history or sick contacts. No night sweats. Reports negative PPD while she was working. Over the last 24 hours, hemoptysis has been improving. CTA: no PE, RML and RLL infiltrates. - History Source History Provided By: Patient Limitations to Obtaining History: No Limitations - Past Medical History Pulmonary: No: Asthma, Bronchitis, Cancer, COPD, O2 Dependent, Pneumonia, Previously Intubated, Pulmonary Embolus, Pulmonary Fibrosis, Sleep Apnea - Alcohol/Substance Use Hx Alcohol Use: No - Smoking History Smoking history: Former smoker Have you smoked in the past 12 months: No If you are a former smoker, when did you quit?: 34 yrs ago Home Medications - Allergies Allergies/Adverse Reactions: Allergies Allergy/AdvReac Type Severity Reaction Status Date / Time No Known Allergies Allergy Verified 09/03/18 04:25 - Home Medications Home Medications: Ambulatory Orders Lisinopril 20 mg PO ASDIR 09/03/18 Review of Systems - Review of Systems Constitutional: reports: Chills, Malaise. denies: Fever, Loss of Appetite, Night Sweats, Unintentional Wgt. Loss, Weakness Eyes: reports: No Symptoms HENT: reports: No Symptoms Neck: reports: No Symptoms Cardiovascular: reports: Shortness of Breath. denies: Chest Pain, Edema, Palpitations Respiratory: reports: Cough, Hemoptysis, SOB. denies: Snoring, SOB on Exertion , Wheezing Gastrointestinal: reports: No Symptoms Genitourinary: reports: No Symptoms Breasts: reports: No Symptoms Reported Musculoskeletal: reports: No Symptoms Integumentary: reports: No Symptoms Neurological: reports: No Symptoms Endocrine: reports: No Symptoms Hematology/Lymphatic: reports: No Symptoms Psychiatric: reports: No Symptoms Physical Exam Vital Sings: Vital Signs Temperature 98.1 F 09/06/18 09:08 Pulse Rate 88 09/06/18 09:08 Respiratory Rate 18 09/06/18 09:08 Blood Pressure 136/86 09/06/18 09:08 O2 Sat by Pulse Oximetry (%) 95 09/05/18 21:00 Constitutional: Yes: No Distress, Calm Eyes: Yes: Conjunctiva Clear, EOM Intact HENT: Yes: Atraumatic, Normocephalic Neck: Yes: Supple, Trachea Midline Cardiovascular: Yes: Regular Rate and Rhythm Respiratory: Yes: Cough, Diminished, Rhonchi. No: Accessory Muscle Use, Rales, SOB, SOB on Exertion, Stridor, Tachypnea, Wheezes ...Inspection: Yes: WNL ...Clubbing: No Gastrointestinal: Yes: Normal Bowel Sounds, Soft Renal/: Yes: WNL Musculoskeletal: Yes: WNL Extremities: Yes: WNL Edema: No Peripheral Pulses WNL: Yes Integumentary: Yes: WNL Neurological: Yes: WNL, Alert, Oriented ...Motor Strength: WNL Psychiatric: Yes: WNL, Alert, Oriented Labs: CBC, BMP 09/06/18 06:00 09/06/18 06:00 Imaging - Results Chest X-ray: Report Reviewed, Image Reviewed Cat Scan: Report Reviewed, Image Reviewed Problem List - Problems (1) GERD (gastroesophageal reflux disease) Code(s): K21.9 - GASTRO-ESOPHAGEAL REFLUX DISEASE WITHOUT ESOPHAGITIS (2) HLD (hyperlipidemia) Code(s): E78.5 - HYPERLIPIDEMIA, UNSPECIFIED (3) Hemoptysis Code(s): R04.2 - HEMOPTYSIS (4) Pre-diabetes Code(s): R73.03 - PREDIABETES (5) Right lower lobe pneumonia Code(s): J18.1 - LOBAR PNEUMONIA, UNSPECIFIED ORGANISM (6) Right middle lobe pneumonia Code(s): J18.1 - LOBAR PNEUMONIA, UNSPECIFIED ORGANISM Assessment/Plan Agree with ABX coverage Monitor off systemic steroids for now O2 as needed At this time no need for Bronchoscopic evaluation as source most likely CAP in RML/RLL Will need to repeat CT in 6 to 8 weeks to document resolution of findings Continued smoking cessation discussed Advised patient to collect expectorant so we can quantify the hemoptysis. Will follow Thank you. Dr Lozada
--- NOTE | 2018-09-06 10:59 | PN ---
Progress Note, Physician History of Present Illness: stable no new issues still with hemoptysis drop in h and h decreased slightly today - Current Medication List Current Medications: Active Medications Acetaminophen (Tylenol -) 650 mg PO Q4H PRN PRN Reason: PAIN LEVEL 1-5 Piperacillin Sod/Tazobactam (Sod 3.375 gm/ Dextrose) 50 mls @ 100 mls/hr IVPB Q8H-IV [facility]; Protocol Last Admin: 09/06/18 09:00 Dose: 100 mls/hr Potassium Chloride 10 meq/ (Sodium Chloride) 1,005 mls @ 75 mls/hr IVPB Q13H [facility] Last Admin: 09/06/18 03:57 Dose: Not Given Lisinopril (Prinivil) 20 mg PO DAILY [facility] Last Admin: 09/06/18 09:01 Dose: 20 mg Pantoprazole Sodium (Protonix -) 20 mg PO DAILY [facility] Last Admin: 09/06/18 09:01 Dose: 20 mg - Objective Vital Signs: Vital Signs Temperature 98.1 F 09/06/18 10:42 Pulse Rate 88 09/06/18 10:42 Respiratory Rate 18 09/06/18 10:42 Blood Pressure 136/86 09/06/18 10:42 O2 Sat by Pulse Oximetry (%) 95 09/05/18 21:00 Constitutional: Yes: No Distress, Calm Cardiovascular: Yes: Regular Rate and Rhythm Respiratory: Yes: Regular, Other (hemoptysis) Gastrointestinal: Yes: Normal Bowel Sounds, Soft Musculoskeletal: Yes: WNL Extremities: Yes: WNL Neurological: Yes: Alert, Oriented Psychiatric: Yes: Alert, Oriented Labs: CBC, BMP 09/06/18 06:00 09/06/18 06:00 INR, PTT INR 1.01 (0.83-1.09) 09/03/18 05:00 Assessment/Plan Problem List - Problems (1) GERD (gastroesophageal reflux disease) Code(s): K21.9 - GASTRO-ESOPHAGEAL REFLUX DISEASE WITHOUT ESOPHAGITIS (2) HLD (hyperlipidemia) Code(s): E78.5 - HYPERLIPIDEMIA, UNSPECIFIED (3) Hemoptysis Code(s): R04.2 - HEMOPTYSIS (4) Pre-diabetes Code(s): R73.03 - PREDIABETES (5) Right lower lobe pneumonia Code(s): J18.1 - LOBAR PNEUMONIA, UNSPECIFIED ORGANISM (6) Right middle lobe pneumonia Code(s): J18.1 - LOBAR PNEUMONIA, UNSPECIFIED ORGANISM Assessment/Plan Acute Hemoptysis RML/RLL PNA HTN GERD continue abx pul on cyanide case hardener hemoptysis rest as per the team await for sputum cx
--- NOTE | 2018-09-06 11:17 | CON.GI ---
Consult Consult Specialty:: Gastroenterology Referred by:: Dr rKamer Reason for Consultation:: Hemoptysis - History of Present Illness Chief Complaint: Hemoptysis History of Present Illness: 67F presents with hemoptysis that follows a URI. She denies abdominal pain or hematemesis but does have chronic acid reflux. She has never had GI bleeding or required an EGD. She did have a colonoscopy 7 years ago which she describes as being normal - History Source History Provided By: Patient Limitations to Obtaining History: No Limitations - Past Medical History Cardio/Vascular: Yes: HTN Pulmonary: Yes: Pneumonia (x 2) Gastrointestinal: Yes: GERD - Past Surgical History Past Surgical History: Yes: Colostomy, , Hysterectomy (RITESH for fibroids ), Tonsillectomy - Alcohol/Substance Use Hx Alcohol Use: Yes (socially) History of Substance Use: reports: None - Smoking History Smoking history: Former smoker Have you smoked in the past 12 months: No If you are a former smoker, when did you quit?: 34 yrs ago - Social History Usual Living Arrangement: With Spouse ADL: Independent 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 : [facility] History of Recent Travel: No Home Medications - Allergies Allergies/Adverse Reactions: Allergies Allergy/AdvReac Type Severity Reaction Status Date / Time No Known Allergies Allergy Verified 09/03/18 04:25 - Home Medications Home Medications: Ambulatory Orders Lisinopril 20 mg PO ASDIR 09/03/18 Family Disease History - Family Disease History Family Disease History: Diabetes: Mother ( 77 of CVA), Other: Father ( CVA age 92), Mother Review of Systems - Review of Systems Constitutional: reports: No Symptoms Eyes: reports: No Symptoms HENT: reports: Nasal Congestion Neck: reports: No Symptoms Cardiovascular: reports: No Symptoms Respiratory: reports: Cough Gastrointestinal: reports: Other (heartburn) Genitourinary: reports: No Symptoms Physical Exam-GI Vital Signs: Vital Signs Temperature 98.1 F 09/06/18 10:42 Pulse Rate 88 09/06/18 10:42 Respiratory Rate 18 09/06/18 10:42 Blood Pressure 136/86 09/06/18 10:42 O2 Sat by Pulse Oximetry (%) 95 09/05/18 21:00 CBC,CMP WBC 3.5 K/mm3 (4.0-10.0) L 09/06/18 06:00 RBC 2.90 M/mm3 (3.60-5.2) L 09/06/18 06:00 Hgb 9.0 GM/dL (10.7-15.3) L 09/06/18 06:00 Hct 25.9 % (32.4-45.2) L 09/06/18 06:00 MCV 89.4 fl (80-96) 09/06/18 06:00 MCH 31.0 pg (25.7-33.7) 09/06/18 06:00 MCHC 34.7 g/dl (32.0-36.0) 09/06/18 06:00 RDW 12.7 % (11.6-15.6) 09/06/18 06:00 Plt Count 220 K/MM3 (134-434) 09/06/18 06:00 MPV 8.4 fl (7.5-11.1) 09/06/18 06:00 Absolute Neuts (auto) 2.2 K/mm3 (1.5-8.0) 09/06/18 06:00 Neutrophils % 63.6 % (42.8-82.8) 09/06/18 06:00 Lymphocytes % 15.4 % (8-40) 09/06/18 06:00 Monocytes % 13.8 % (3.8-10.2) H 09/06/18 06:00 Eosinophils % 6.1 % (0-4.5) H 09/06/18 06:00 Basophils % 1.1 % (0-2.0) 09/06/18 06:00 Nucleated RBC % 0 % (0-0) 09/06/18 06:00 ESR 53 mm/hr (0-30) H 09/05/18 07:00 Sodium 142 mmol/L (136-145) 09/06/18 06:00 Potassium 3.9 mmol/L (3.5-5.1) 09/06/18 06:00 Chloride 112 mmol/L (98-107) H 09/06/18 06:00 Carbon Dioxide 26 mmol/L (21-32) 09/06/18 06:00 Anion Gap 4 MMOL/L (8-16) L 09/06/18 06:00 BUN 9 mg/dL (7-18) 09/06/18 06:00 Creatinine 1.0 mg/dL (0.55-1.3) 09/06/18 06:00 Creat Clearance w eGFR 55.64 (>60) 09/06/18 06:00 Random Glucose 89 mg/dL (74-106) 09/06/18 06:00 Lactic Acid 0.8 mmol/L (0.4-2.0) 09/05/18 07:00 Calcium 8.4 mg/dL (8.5-10.1) L 09/06/18 06:00 Total Bilirubin 0.6 mg/dL (0.2-1) 09/04/18 06:30 AST 14 U/L (15-37) L 09/04/18 06:30 ALT 15 U/L (13-61) 09/04/18 06:30 Alkaline Phosphatase 54 U/L (45-117) 09/04/18 06:30 Total Protein 6.5 g/dl (6.4-8.2) 09/04/18 06:30 Albumin 3.3 g/dl (3.4-5.0) L 09/04/18 06:30 Current Medications Generic Name Dose Route Start Last Admin Trade Name Freq PRN Reason Stop Dose Admin Acetaminophen 650 mg 09/03/18 11:48 Tylenol - PO Q4H PRN PAIN LEVEL 1-5 Piperacillin Sod/Tazobactam 50 mls @ 100 mls/hr 09/03/18 22:00 09/06/18 09:00 Sod 3.375 gm/ Dextrose IVPB 100 mls/hr Q8H-IV [facility] Administration Protocol Potassium Chloride 10 meq/ 1,005 mls @ 75 mls/hr 09/03/18 22:45 09/06/18 03: 57 Sodium Chloride IVPB Not Given Q13H [facility] Lisinopril 20 mg 09/04/18 10:00 09/06/18 09:01 Prinivil PO 20 mg DAILY [facility] Administration Pantoprazole Sodium 20 mg 09/04/18 10:00 09/06/18 09:01 Protonix - PO 20 mg DAILY [facility] Administration Constitutional: Yes: No Distress Eyes: Yes: Conjunctiva Clear HENT: Yes: Atraumatic Neck: Yes: Supple Cardiovascular: Yes: Regular Rate and Rhythm Respiratory: Yes: CTA Bilaterally Gastrointestinal Inspection: Yes: Scars (healed Pfannensteil incisions) ...Auscultate: Yes: Normoactive Bowel Sounds ...Palpate: Yes: Soft, Other (nontender) ...Rectal Exam: Yes: Guaiac Positive (brown guiaic positive stool) Edema: No Neurological: Yes: Alert, Oriented Labs: CBC, BMP 09/06/18 06:00 09/06/18 06:00 INR, PTT INR 1.01 (0.83-1.09) 09/03/18 05:00 Problem List - Problems (1) Occult blood in stools Assessment/Plan: I suspect that the occult bleeding is due to swallowed blood from hemoptysis secondary to her pneumonia. I doubt active GI bleeding but remain available should such bleeding manifest itself. I have already discussed an EGD and it's potential for such complications as perforation and hemorrhage should it become necessary and Milicent is in a position to make an informed consent. PPI can be given empirically at it will also treat her heartburn Code(s): R19.5 - OTHER FECAL ABNORMALITIES (2) Hypertension Code(s): I10 - ESSENTIAL (PRIMARY) HYPERTENSION (3) Right lower lobe pneumonia Code(s): J18.1 - LOBAR PNEUMONIA, UNSPECIFIED ORGANISM (4) Right middle lobe pneumonia Code(s): J18.1 - LOBAR PNEUMONIA, UNSPECIFIED ORGANISM Assessment/Plan Impression: I suspect that the occult bleeding is due to swallowed blood from hemoptysis secondary to her pneumonia. I doubt active GI bleeding Plan: I remain available should GI bleeding manifest itself. I have already discussed an EGD and it's potential for such complications as perforation and hemorrhage should it become necessary and Milicent is in a position to make an informed consent. PPI can be given empirically at it will also treat her heartburn
[2018-09-06 16:14] LABS: MYCOPLASMA PNEUMONIAE,IG G AB <100 U/mL (0-99); MYCOPLASMA PNEUMONIAE,IGM AB <770 U/mL (0-769)
--- NOTE | 2018-09-06 19:02 | PN ---
Progress Note, Physician History of Present Illness: Pt is still having Hemoptysis But less discussed with ID. Pt has Drop in Hb/Hct but stable No Fever No SOB No chest pain - Current Medication List Current Medications: Active Medications Acetaminophen (Tylenol -) 650 mg PO Q4H PRN PRN Reason: PAIN LEVEL 1-5 Piperacillin Sod/Tazobactam (Sod 3.375 gm/ Dextrose) 50 mls @ 100 mls/hr IVPB Q8H-IV [facility]; Protocol Last Admin: 09/06/18 17:34 Dose: 100 mls/hr Potassium Chloride 10 meq/ (Sodium Chloride) 1,005 mls @ 75 mls/hr IVPB Q13H [facility] Last Admin: 09/06/18 15:09 Dose: 75 mls/hr Lisinopril (Prinivil) 20 mg PO DAILY [facility] Last Admin: 09/06/18 09:01 Dose: 20 mg Pantoprazole Sodium (Protonix -) 40 mg PO BID [facility] - Objective Vital Signs: Vital Signs Temperature 98.4 F 09/06/18 14:06 Pulse Rate 97 H 09/06/18 14:06 Respiratory Rate 20 09/06/18 14:06 Blood Pressure 136/93 09/06/18 14:06 O2 Sat by Pulse Oximetry (%) 99 09/06/18 14:43 Constitutional: Yes: No Distress Eyes: Yes: Conjunctiva Clear, EOM Intact HENT: Yes: Atraumatic, Normocephalic Neck: Yes: Supple, Trachea Midline Cardiovascular: Yes: Regular Rate and Rhythm, S1, S2 Respiratory: Yes: Regular, CTA Bilaterally Gastrointestinal: Yes: Normal Bowel Sounds, Soft Edema: No Labs: CBC, BMP 09/06/18 06:00 09/06/18 06:00 INR, PTT INR 1.01 (0.83-1.09) 09/03/18 05:00 Problem List - Problems (1) Right lower lobe pneumonia Code(s): J18.1 - LOBAR PNEUMONIA, UNSPECIFIED ORGANISM (2) Right middle lobe pneumonia Code(s): J18.1 - LOBAR PNEUMONIA, UNSPECIFIED ORGANISM (3) Hemoptysis Code(s): R04.2 - HEMOPTYSIS (4) Pre-diabetes Code(s): R73.03 - PREDIABETES (5) HLD (hyperlipidemia) Code(s): E78.5 - HYPERLIPIDEMIA, UNSPECIFIED (6) Fibula fracture Code(s): S82.409A - UNSP FRACTURE OF SHAFT OF UNSP FIBULA, INIT FOR CLOS FX (7) GERD (gastroesophageal reflux disease) Code(s): K21.9 - GASTRO-ESOPHAGEAL REFLUX DISEASE WITHOUT ESOPHAGITIS Qualifiers: Esophagitis presence: esophagitis presence not specified Qualified Code(s) : K21.9 - Gastro-esophageal reflux disease without esophagitis (8) Anemia Code(s): D64.9 - ANEMIA, UNSPECIFIED Assessment/Plan (1) Right lower lobe pneumonia Code(s): J18.1 - LOBAR PNEUMONIA, UNSPECIFIED ORGANISM (2) Right middle lobe pneumonia Code(s): J18.1 - LOBAR PNEUMONIA, UNSPECIFIED ORGANISM (3) Hemoptysis Code(s): R04.2 - HEMOPTYSIS (4) Pre-diabetes Code(s): R73.03 - PREDIABETES (5) HLD (hyperlipidemia) Code(s): E78.5 - HYPERLIPIDEMIA, UNSPECIFIED (6) Fibula fracture Code(s): S82.409A - UNSP FRACTURE OF SHAFT OF UNSP FIBULA, INIT FOR CLOS FX (7) GERD (gastroesophageal reflux disease) Code(s): K21.9 - GASTRO-ESOPHAGEAL REFLUX DISEASE WITHOUT ESOPHAGITIS Pt is in Isolation BC/UC PPD is negative Spoke with Id Pt will have CT sinuses ENT Eval R/O Nasopharyngeal/Laryngeal malignacy awaited Pulmonary: R/O malignacy/ Consult noted GI eval to R/O malignacy/Consult noted CT sinuses : WNL
[2018-09-07] MEDS ORDERED: PIPERACILLIN/TAZOBACTAM 3.375 GM VIAL IVPB ONE ×3 (01:21→16:54)
[2018-09-07] MEDS ORDERED: DEXTROSE 5%-WATER - 50 ML IVPB ONE ×3 (01:22→16:54)
[2018-09-07] MEDS: PIPERACILLIN/TAZOB 3.375 GM 3.375 GM in DEXTROSE 5%-WATER - 50 ML IVPB SCH ×3 (01:44→17:04)
[2018-09-07 07:32] LABS: BASO % 1.3 % (0-2.0); EOS % 5.1 % (0-4.5); HEMATOCRIT 25.2 % (32.4-45.2); LYMPH % 11.9 % (8-40); MCH 31.6 pg (25.7-33.7); MCHC 35.5 g/dl (32.0-36.0); MEAN CELL VOLUME 88.9 fl (80-96); MEAN PLT VOLUME 8.5 fl (7.5-11.1); NEUT % 68.7 % (42.8-82.8); PLATELET COUNT 234 K/MM3 (134-434); RBC 2.84 M/mm3 (3.60-5.2); RDW 13.5 % (11.6-15.6); WHITE BLOOD COUNT 3.9 K/mm3 (4.0-10.0)
[2018-09-07 07:53] LABS: ANION GAP 6 MMOL/L (8-16); BLOOD UREA NITROGEN 8 mg/dL (7-18); CALCIUM 8.8 mg/dL (8.5-10.1); CHLORIDE 112 mmol/L (98-107); CO2 26 mmol/L (21-32); CREATININE 0.9 mg/dL (0.55-1.3); GLUCOSE,RANDOM 90 mg/dL (74-106); SODIUM 143 mmol/L (136-145)
--- NOTE | 2018-09-07 09:51 | PN ---
Progress Note (short form) - Note Progress Note: Had 2 episode of hemoptysis last night, last episode was around 10PM last night. No further hemoptysis since that time. No CP or SOB. Afebrile. CXR: RLL / RML infiltrates Intake & Output 09/04/18 09/05/18 09/06/18 09/07/18 23:59 23:59 23:59 23:59 Intake Total 1946 142 0567 50 Balance 1040 456 1886 50 Weight 156 lb Last Vital Signs Temp Pulse Resp BP Pulse Ox 98 F 73 20 138/82 99 09/07/18 06:15 09/07/18 06:15 09/07/18 06:15 09/07/18 06:15 09/06/18 21:00 Active Medications Acetaminophen (Tylenol -) 650 mg PO Q4H PRN PRN Reason: PAIN LEVEL 1-5 Piperacillin Sod/Tazobactam (Sod 3.375 gm/ Dextrose) 50 mls @ 100 mls/hr IVPB Q8H-IV [facility]; Protocol Last Admin: 09/07/18 01:44 Dose: 100 mls/hr Lisinopril (Prinivil) 20 mg PO DAILY [facility] Last Admin: 09/06/18 09:01 Dose: 20 mg Pantoprazole Sodium (Protonix -) 40 mg PO BID [facility] Last Admin: 09/06/18 21:54 Dose: 40 mg Constitutional: Yes: Awake and alert, No Distress Eyes: Yes: Conjunctiva Clear, EOM Intact HENT: Yes: Atraumatic, Normocephalic Neck: Yes: Supple, Trachea Midline Cardiovascular: Yes: Regular Rate and Rhythm Respiratory: Yes: Cough, Diminished, Rhonchi. No: Accessory Muscle Use, Rales, SOB, SOB on Exertion, Stridor, Tachypnea, Wheezes ...Inspection: Yes: WNL ...Clubbing: No Gastrointestinal: Yes: Normal Bowel Sounds, Soft Renal/: Yes: WNL Musculoskeletal: Yes: WNL Extremities: Yes: WNL Edema: No Peripheral Pulses WNL: Yes Integumentary: Yes: WNL Neurological: Yes: WNL, Alert, Oriented ...Motor Strength: WNL Psychiatric: Yes: WNL, Alert, Oriented Labs: Laboratory Results - last 24 hr 09/04/18 09/07/18 09/07/18 06:30 06:30 06:30 WBC 3.9 L RBC 2.84 L Hgb 9.0 L Hct 25.2 L MCV 88.9 MCH 31.6 MCHC 35.5 RDW 13.5 Plt Count 234 MPV 8.5 Absolute Neuts (auto) 2.7 Neutrophils % 68.7 Lymphocytes % 11.9 D Monocytes % 13.0 H Eosinophils % 5.1 H Basophils % 1.3 Nucleated RBC % 0 Sodium 143 Potassium 4.0 Chloride 112 H Carbon Dioxide 26 Anion Gap 6 L BUN 8 Creatinine 0.9 Creat Clearance w eGFR 62.84 Random Glucose 90 Calcium 8.8 M.pneumoniae IgG Titer <100 M.pneumoniae IgM Titer <770 Problem List - Problems (1) GERD (gastroesophageal reflux disease) Code(s): K21.9 - GASTRO-ESOPHAGEAL REFLUX DISEASE WITHOUT ESOPHAGITIS (2) HLD (hyperlipidemia) Code(s): E78.5 - HYPERLIPIDEMIA, UNSPECIFIED (3) Hemoptysis Code(s): R04.2 - HEMOPTYSIS (4) Pre-diabetes Code(s): R73.03 - PREDIABETES (5) Right lower lobe pneumonia Code(s): J18.1 - LOBAR PNEUMONIA, UNSPECIFIED ORGANISM (6) Right middle lobe pneumonia Code(s): J18.1 - LOBAR PNEUMONIA, UNSPECIFIED ORGANISM Assessment/Plan ABX coverage per ID Continue to monitor off systemic steroids O2 as needed At this time no need for Bronchoscopic evaluation as source most likely CAP in RML/RLL Will need to repeat CT in 6 to 8 weeks to document resolution of findings Continued smoking cessation discussed Dr Lozada Problem List - Problems (1) GERD (gastroesophageal reflux disease) Code(s): K21.9 - GASTRO-ESOPHAGEAL REFLUX DISEASE WITHOUT ESOPHAGITIS (2) HLD (hyperlipidemia) Code(s): E78.5 - HYPERLIPIDEMIA, UNSPECIFIED (3) Hemoptysis Code(s): R04.2 - HEMOPTYSIS (4) Pre-diabetes Code(s): R73.03 - PREDIABETES (5) Right lower lobe pneumonia Code(s): J18.1 - LOBAR PNEUMONIA, UNSPECIFIED ORGANISM (6) Right middle lobe pneumonia Code(s): J18.1 - LOBAR PNEUMONIA, UNSPECIFIED ORGANISM
[2018-09-07] MEDS: PANTOPRAZOLE 20 MG TABLET (FP) PO SCH ×2 (11:17→21:49)
[2018-09-07] MEDS: LISINOPRIL 20 MG TABLET (FP) PO SCH (11:18)
--- NOTE | 2018-09-07 12:33 | PN ---
Progress Note, Physician History of Present Illness: stable with hemoptysis still - Current Medication List Current Medications: Active Medications Acetaminophen (Tylenol -) 650 mg PO Q4H PRN PRN Reason: PAIN LEVEL 1-5 Piperacillin Sod/Tazobactam (Sod 3.375 gm/ Dextrose) 50 mls @ 100 mls/hr IVPB Q8H-IV [facility]; Protocol Last Admin: 09/07/18 11:16 Dose: 100 mls/hr Lisinopril (Prinivil) 20 mg PO DAILY [facility] Last Admin: 09/07/18 11:18 Dose: 20 mg Pantoprazole Sodium (Protonix -) 40 mg PO BID [facility] Last Admin: 09/07/18 11:17 Dose: 40 mg - Objective Vital Signs: Vital Signs Temperature 97.8 F 09/07/18 10:00 Pulse Rate 113 H 09/07/18 10:00 Respiratory Rate 20 09/07/18 10:00 Blood Pressure 142/95 09/07/18 10:00 O2 Sat by Pulse Oximetry (%) 99 09/06/18 21:00 Constitutional: Yes: No Distress, Calm Cardiovascular: Yes: Regular Rate and Rhythm Respiratory: Yes: Regular, CTA Bilaterally Gastrointestinal: Yes: Normal Bowel Sounds, Soft Musculoskeletal: Yes: WNL Extremities: Yes: WNL Neurological: Yes: Alert, Oriented Psychiatric: Yes: Alert, Oriented Labs: CBC, BMP 09/07/18 06:30 09/07/18 06:30 INR, PTT INR 1.01 (0.83-1.09) 09/03/18 05:00 Assessment/Plan Problem List - Problems (1) GERD (gastroesophageal reflux disease) Code(s): K21.9 - GASTRO-ESOPHAGEAL REFLUX DISEASE WITHOUT ESOPHAGITIS (2) HLD (hyperlipidemia) Code(s): E78.5 - HYPERLIPIDEMIA, UNSPECIFIED (3) Hemoptysis Code(s): R04.2 - HEMOPTYSIS (4) Pre-diabetes Code(s): R73.03 - PREDIABETES (5) Right lower lobe pneumonia Code(s): J18.1 - LOBAR PNEUMONIA, UNSPECIFIED ORGANISM (6) Right middle lobe pneumonia Code(s): J18.1 - LOBAR PNEUMONIA, UNSPECIFIED ORGANISM Assessment/Plan Acute Hemoptysis RML/RLL PNA HTN GERD ent to evaluate the patient rest as per the team monitor h and h rest as per the team
--- NOTE | 2018-09-07 19:04 | CON.ENT ---
Consult Consult Specialty:: ENT Referred by:: Dr. Kramer Reason for Consultation:: rule out laryngeal malignancy - History of Present Illness Chief Complaint: hemoptysis History of Present Illness: 67 yo F admitted with pneumonia, hemoptysis has had cough, coughed up blood, feels it coming from below, hx GERD and feels reflux "bubbling up", GI consultation noted pt has hx ear wax, hearing is ok nose mildly congested, worried about "spores" in the nose on oxygen by nasal cannula able to eat solids and liquids, no food sticking or choking voice clear and strong has had improvement in blood in sputum but coughed up a larger amount this morning, much less this afternoon mild nasal congestion - History Source History Provided By: Patient, Medical Record Limitations to Obtaining History: No Limitations - Past Medical History Cardio/Vascular: Yes: HTN Pulmonary: Yes: Pneumonia (x 2) Gastrointestinal: Yes: GERD - Past Surgical History Past Surgical History: Yes: Colostomy, , Hysterectomy (RITESH for fibroids ), Tonsillectomy - Alcohol/Substance Use Hx Alcohol Use: Yes (socially) History of Substance Use: reports: None - Smoking History Smoking history: Former smoker Have you smoked in the past 12 months: No If you are a former smoker, when did you quit?: 34 yrs ago - Social History Usual Living Arrangement: With Spouse ADL: Independent Occupation: retired RN at [employer], [place] History of Recent Travel: No Home Medications - Allergies Allergies/Adverse Reactions: Allergies Allergy/AdvReac Type Severity Reaction Status Date / Time No Known Allergies Allergy Verified 09/03/18 04:25 - Home Medications Home Medications: Ambulatory Orders Lisinopril 20 mg PO ASDIR 09/03/18 Family Disease History - Family Disease History Family Disease History: Diabetes: Mother ( 77 of CVA), Other: Father ( CVA age 92), Mother Physical Exam-ENT Vital Signs: Vital Signs Temperature 98 F 09/07/18 17:16 Pulse Rate 89 09/07/18 17:16 Respiratory Rate 201 H 09/07/18 17:16 Blood Pressure 145/92 09/07/18 17:16 O2 Sat by Pulse Oximetry (%) 98 09/07/18 17:58 Constitutional: Yes: Well Nourished, No Distress, Calm Head: Yes: WNL Face: Yes: WNL Eyes: Yes: WNL Nose: Yes: Other (mild dryness, no bleeding, mild turbinate hypertrophy) Oral/Pharynx: Yes: WNL Outer Ear: Yes: WNL Ear Canal: Yes: WNL Tympanic Membrane: Yes: WNL Neck: Yes: WNL Imaging - Results Chest X-ray: Report Reviewed Cat Scan: Report Reviewed, Image Reviewed (CT sinuses: no mass, inferior turbinate hypertrophy, mild maxillary sinus mucosal thickening, no air fluid level, hyperostosis frontalis interna) Problem List - Problems (1) GERD (gastroesophageal reflux disease) Assessment/Plan: pt with hx GERD GI consultation with Dr. Go reviewed may be contributory to her cough in addition to the pneumonia Code(s): K21.9 - GASTRO-ESOPHAGEAL REFLUX DISEASE WITHOUT ESOPHAGITIS Qualifiers: Esophagitis presence: esophagitis presence not specified Qualified Code(s) : K21.9 - Gastro-esophageal reflux disease without esophagitis (2) Hemoptysis Assessment/Plan: hx hemoptysis, clinically improving CTA chest negative for pulmonary embolism or other vascular anomaly Pneumonia present, improving clinically with IV antibiotic therapy still on nasal oxygen, isolation discontinued Recommend: will perform bedside endoscopy in the morning to evaluate nasopharynx and larynx and rule out upper airway malignancy not highly suspected as CT sinuses shows unremarkable nasopharyngeal tissue and voice is clear and strong, no throat pain or dysphagia Thank you for consultation, Zeyad Altamirano MD FACS Code(s): R04.2 - HEMOPTYSIS
--- NOTE | 2018-09-07 23:07 | PN ---
Progress Note, Physician - Current Medication List Current Medications: Active Medications Acetaminophen (Tylenol -) 650 mg PO Q4H PRN PRN Reason: PAIN LEVEL 1-5 Piperacillin Sod/Tazobactam (Sod 3.375 gm/ Dextrose) 50 mls @ 100 mls/hr IVPB Q8H-IV [facility]; Protocol Last Admin: 09/07/18 17:04 Dose: 100 mls/hr Lisinopril (Prinivil) 20 mg PO DAILY [facility] Last Admin: 09/07/18 11:18 Dose: 20 mg Pantoprazole Sodium (Protonix -) 40 mg PO BID [facility] Last Admin: 09/07/18 21:49 Dose: 40 mg - Objective Vital Signs: Vital Signs Temperature 98.2 F 09/07/18 19:58 Pulse Rate 80 09/07/18 19:58 Respiratory Rate 22 H 09/07/18 19:58 Blood Pressure 144/90 09/07/18 19:58 O2 Sat by Pulse Oximetry (%) 99 09/07/18 20:01 Labs: CBC, BMP 09/07/18 06:30 09/07/18 06:30 INR, PTT INR 1.01 (0.83-1.09) 09/03/18 05:00 Problem List - Problems (1) Right lower lobe pneumonia Code(s): J18.1 - LOBAR PNEUMONIA, UNSPECIFIED ORGANISM (2) Right middle lobe pneumonia Code(s): J18.1 - LOBAR PNEUMONIA, UNSPECIFIED ORGANISM (3) Hemoptysis Code(s): R04.2 - HEMOPTYSIS (4) Pre-diabetes Code(s): R73.03 - PREDIABETES (5) HLD (hyperlipidemia) Code(s): E78.5 - HYPERLIPIDEMIA, UNSPECIFIED (6) Fibula fracture Code(s): S82.409A - UNSP FRACTURE OF SHAFT OF UNSP FIBULA, INIT FOR CLOS FX (7) GERD (gastroesophageal reflux disease) Code(s): K21.9 - GASTRO-ESOPHAGEAL REFLUX DISEASE WITHOUT ESOPHAGITIS Qualifiers: Esophagitis presence: esophagitis presence not specified Qualified Code(s) : K21.9 - Gastro-esophageal reflux disease without esophagitis
[2018-09-08] MEDS ORDERED: PIPERACILLIN/TAZOBACTAM 3.375 GM VIAL IVPB ONE ×4 (00:12→23:43)
[2018-09-08] MEDS ORDERED: DEXTROSE 5%-WATER - 50 ML IVPB ONE ×4 (00:12→23:44)
[2018-09-08] MEDS: PIPERACILLIN/TAZOB 3.375 GM 3.375 GM in DEXTROSE 5%-WATER - 50 ML IVPB SCH ×3 (01:26→18:27)
[2018-09-08 06:43] LABS: BASO % 0.9 % (0-2.0); EOS % 5.4 % (0-4.5); HEMATOCRIT 26.2 % (32.4-45.2); HEMOGLOBIN 9.1 GM/dL (10.7-15.3); LYMPH % 10.9 % (8-40); MCHC 34.6 g/dl (32.0-36.0); MEAN CELL VOLUME 89.6 fl (80-96); MEAN PLT VOLUME 8.3 fl (7.5-11.1); MONO % 15.5 % (3.8-10.2); NEUT % 67.3 % (42.8-82.8); PLATELET COUNT 256 K/MM3 (134-434); RBC 2.93 M/mm3 (3.60-5.2); RDW 13.3 % (11.6-15.6); WHITE BLOOD COUNT 4.4 K/mm3 (4.0-10.0)
[2018-09-08 06:45] LABS: INR 1.15 (0.83-1.09); PROTHROMBIN TIME (PATIENT) 13.6 SEC (9.7-13.0)
[2018-09-08 07:19] LABS: ANION GAP 7 MMOL/L (8-16); BLOOD UREA NITROGEN 10 mg/dL (7-18); CALCIUM 8.8 mg/dL (8.5-10.1); CHLORIDE 109 mmol/L (98-107); CO2 25 mmol/L (21-32); CREATININE 0.9 mg/dL (0.55-1.3); GLUCOSE,RANDOM 86 mg/dL (74-106); POTASSIUM 3.7 mmol/L (3.5-5.1); SODIUM 141 mmol/L (136-145)
--- NOTE | 2018-09-08 08:10 | PN ---
Progress Note, Physician History of Present Illness: patient stable says now with streakish blood tinged sputum plan for nasal endoscopy today - Current Medication List Current Medications: Active Medications Acetaminophen (Tylenol -) 650 mg PO Q4H PRN PRN Reason: PAIN LEVEL 1-5 Piperacillin Sod/Tazobactam (Sod 3.375 gm/ Dextrose) 50 mls @ 100 mls/hr IVPB Q8H-IV [facility]; Protocol Last Admin: 09/08/18 01:26 Dose: 100 mls/hr Lisinopril (Prinivil) 20 mg PO DAILY [facility] Last Admin: 09/07/18 11:18 Dose: 20 mg Pantoprazole Sodium (Protonix -) 40 mg PO BID [facility] Last Admin: 09/07/18 21:49 Dose: 40 mg - Objective Vital Signs: Vital Signs Temperature 98.2 F 09/08/18 06:19 Pulse Rate 66 09/08/18 06:19 Respiratory Rate 20 09/08/18 06:19 Blood Pressure 121/77 09/08/18 06:19 O2 Sat by Pulse Oximetry (%) 99 09/07/18 21:00 Constitutional: Yes: No Distress, Calm Cardiovascular: Yes: Regular Rate and Rhythm Respiratory: Yes: Regular, CTA Bilaterally Gastrointestinal: Yes: Normal Bowel Sounds, Soft Musculoskeletal: Yes: WNL Extremities: Yes: WNL Neurological: Yes: Alert, Oriented Psychiatric: Yes: Alert, Oriented Labs: CBC, BMP 09/08/18 05:30 09/08/18 05:30 INR, PTT INR 1.15 (0.83-1.09) H 09/08/18 05:30 Assessment/Plan Problem List - Problems (1) GERD (gastroesophageal reflux disease) Code(s): K21.9 - GASTRO-ESOPHAGEAL REFLUX DISEASE WITHOUT ESOPHAGITIS (2) HLD (hyperlipidemia) Code(s): E78.5 - HYPERLIPIDEMIA, UNSPECIFIED (3) Hemoptysis Code(s): R04.2 - HEMOPTYSIS (4) Pre-diabetes Code(s): R73.03 - PREDIABETES (5) Right lower lobe pneumonia Code(s): J18.1 - LOBAR PNEUMONIA, UNSPECIFIED ORGANISM (6) Right middle lobe pneumonia Code(s): J18.1 - LOBAR PNEUMONIA, UNSPECIFIED ORGANISM Assessment/Plan Acute Hemoptysis RML/RLL PNA HTN GERD continue abx await for ent to see rest as per the team h and h stable
--- NOTE | 2018-09-08 10:05 | PN ---
Progress Note (short form) - Note Progress Note: ENT feeling better breathing more comfortable expectorated a small amount of blood today Exam: NAD pt was anxious about endoscopic examination but tolerated procedure well nasal endoscopy (topical lidocaine nad phenylephrine): nasal septum intact with minimal deviation inferior turbinates moderately edematous middle turbinates sl edema, middle meati no pus or polyp superior turbinates and meati not able to visualize because of edema sphenoethmoid recess not able to visualize flexible laryngoscopy: nasopharynx: scar from adenoidectomy, mild edema, no lesion base of tongue sl retro but no mass epiglottis normal aryepiglottic folds normal arytenoids moderate edema false and true vocal cords WNL no lesions, VC mobility normal, complete closure on phonation pyriform sinuses unremarkable Impression: pneumonia hemoptysis no upper airway source of bleeding identified no upper airway neoplasm identified chronic rhinitis and inferior turbinate hypertrophy, mild maxillary sinus mucosal thickening GERD, laryngoscopy findings of moderate edema of arytenoids consistent with reflux laryngitis Recommend nasal saline spray reflux meds and precautions continue medical evaluation and management for pneumonia Zeyad Altamirano MD FACS Problem List - Problems (1) GERD (gastroesophageal reflux disease) Code(s): K21.9 - GASTRO-ESOPHAGEAL REFLUX DISEASE WITHOUT ESOPHAGITIS Qualifiers: Esophagitis presence: esophagitis presence not specified Qualified Code(s) : K21.9 - Gastro-esophageal reflux disease without esophagitis (2) Hemoptysis Code(s): R04.2 - HEMOPTYSIS
[2018-09-08] MEDS: LISINOPRIL 20 MG TABLET (FP) PO SCH (11:02)
[2018-09-08] MEDS: PANTOPRAZOLE 20 MG TABLET (FP) PO SCH ×2 (11:02→21:35)
--- NOTE | 2018-09-08 12:09 | PN ---
Progress Note (short form) - Note Progress Note: PULMONARY Minimal dark hemoptysis this AM. ENT exam unremarkable. Vital Signs Period Temp Pulse Resp BP Sys/Sampson Pulse Ox Last 24 Hr 98 F-98.2 F 66-95 20-201 121-145/77-98 98-99 Gen: NAD at rest Heart: RRR Lung: decreased breath sounds at the bases Abd: soft, nontender Ext: no edema CBC, BMP 09/08/18 05:30 09/08/18 05:30 Active Medications Acetaminophen (Tylenol -) 650 mg PO Q4H PRN PRN Reason: PAIN LEVEL 1-5 Piperacillin Sod/Tazobactam (Sod 3.375 gm/ Dextrose) 50 mls @ 100 mls/hr IVPB Q8H-IV [facility]; Protocol Last Admin: 09/08/18 11:01 Dose: 100 mls/hr Lisinopril (Prinivil) 20 mg PO DAILY [facility] Last Admin: 09/08/18 11:02 Dose: 20 mg Pantoprazole Sodium (Protonix -) 40 mg PO BID [facility] Last Admin: 09/08/18 11:02 Dose: 40 mg A/P Hemoptysis resolving Pneumonia HTN Hyperlipidemia - complete antibiotics per ID - monitor hemoptysis - will need outpt f/u of chest imaging to ensure resolution of infiltrates - DVT prophylaxis
--- NOTE | 2018-09-08 16:05 | PN ---
Progress Note, Physician History of Present Illness: Pt is Hemodynamically stable Decreased Hemoptysis Pt had ENT Eval Pt is doing well - Current Medication List Current Medications: Active Medications Acetaminophen (Tylenol -) 650 mg PO Q4H PRN PRN Reason: PAIN LEVEL 1-5 Piperacillin Sod/Tazobactam (Sod 3.375 gm/ Dextrose) 50 mls @ 100 mls/hr IVPB Q8H-IV [facility]; Protocol Last Admin: 09/08/18 11:01 Dose: 100 mls/hr Lisinopril (Prinivil) 20 mg PO DAILY [facility] Last Admin: 09/08/18 11:02 Dose: 20 mg Pantoprazole Sodium (Protonix -) 40 mg PO BID [facility] Last Admin: 09/08/18 11:02 Dose: 40 mg - Objective Vital Signs: Vital Signs Temperature 98.2 F 09/08/18 14:45 Pulse Rate 86 09/08/18 14:45 Respiratory Rate 20 09/08/18 14:45 Blood Pressure 112/72 09/08/18 14:45 O2 Sat by Pulse Oximetry (%) 98 09/08/18 09:00 Constitutional: Yes: No Distress Eyes: Yes: Conjunctiva Clear, EOM Intact HENT: Yes: Atraumatic, Normocephalic Neck: Yes: Supple, Trachea Midline Cardiovascular: Yes: Regular Rate and Rhythm Respiratory: Yes: Regular, CTA Bilaterally Gastrointestinal: Yes: Normal Bowel Sounds, Soft Musculoskeletal: Yes: WNL Edema: No Peripheral Pulses WNL: Yes Labs: CBC, BMP 09/08/18 05:30 09/08/18 05:30 INR, PTT INR 1.15 (0.83-1.09) H 09/08/18 05:30 Problem List - Problems (1) Right lower lobe pneumonia Code(s): J18.1 - LOBAR PNEUMONIA, UNSPECIFIED ORGANISM (2) Right middle lobe pneumonia Code(s): J18.1 - LOBAR PNEUMONIA, UNSPECIFIED ORGANISM (3) Hemoptysis Code(s): R04.2 - HEMOPTYSIS (4) Pre-diabetes Code(s): R73.03 - PREDIABETES (5) HLD (hyperlipidemia) Code(s): E78.5 - HYPERLIPIDEMIA, UNSPECIFIED (6) Fibula fracture Code(s): S82.409A - UNSP FRACTURE OF SHAFT OF UNSP FIBULA, INIT FOR CLOS FX (7) GERD (gastroesophageal reflux disease) Code(s): K21.9 - GASTRO-ESOPHAGEAL REFLUX DISEASE WITHOUT ESOPHAGITIS Qualifiers: Esophagitis presence: esophagitis presence not specified Qualified Code(s) : K21.9 - Gastro-esophageal reflux disease without esophagitis Assessment/Plan (1) Right lower lobe pneumonia Code(s): J18.1 - LOBAR PNEUMONIA, UNSPECIFIED ORGANISM (2) Right middle lobe pneumonia Code(s): J18.1 - LOBAR PNEUMONIA, UNSPECIFIED ORGANISM (3) Hemoptysis Code(s): R04.2 - HEMOPTYSIS (4) Pre-diabetes Code(s): R73.03 - PREDIABETES (5) HLD (hyperlipidemia) Code(s): E78.5 - HYPERLIPIDEMIA, UNSPECIFIED (6) Fibula fracture Code(s): S82.409A - UNSP FRACTURE OF SHAFT OF UNSP FIBULA, INIT FOR CLOS FX (7) GERD (gastroesophageal reflux disease) Code(s): K21.9 - GASTRO-ESOPHAGEAL REFLUX DISEASE WITHOUT ESOPHAGITIS Pt is hemodynamically stable Decreased Hemoptysis ENT Eval noted we will discuss with ID
[2018-09-09] MEDS: PIPERACILLIN/TAZOB 3.375 GM 3.375 GM in DEXTROSE 5%-WATER - 50 ML IVPB SCH ×3 (01:38→18:26)
[2018-09-09] MEDS ORDERED: PIPERACILLIN/TAZOBACTAM 3.375 GM VIAL IVPB ONE ×2 (09:41→18:04)
[2018-09-09] MEDS ORDERED: DEXTROSE 5%-WATER - 50 ML IVPB ONE ×2 (09:42→18:04)
--- NOTE | 2018-09-09 09:45 | PN ---
Progress Note, Physician History of Present Illness: patient doing well still with blood streak - Current Medication List Current Medications: Active Medications Acetaminophen (Tylenol -) 650 mg PO Q4H PRN PRN Reason: PAIN LEVEL 1-5 Piperacillin Sod/Tazobactam (Sod 3.375 gm/ Dextrose) 50 mls @ 100 mls/hr IVPB Q8H-IV [facility]; Protocol Last Admin: 09/09/18 01:38 Dose: 100 mls/hr Lisinopril (Prinivil) 20 mg PO DAILY [facility] Last Admin: 09/08/18 11:02 Dose: 20 mg Pantoprazole Sodium (Protonix -) 40 mg PO BID [facility] Last Admin: 09/08/18 21:35 Dose: 40 mg - Objective Vital Signs: Vital Signs Temperature 97.9 F 09/09/18 06:00 Pulse Rate 85 09/09/18 06:00 Respiratory Rate 20 09/09/18 06:00 Blood Pressure 100/63 09/09/18 06:00 O2 Sat by Pulse Oximetry (%) 98 09/08/18 21:00 Constitutional: Yes: No Distress, Calm Cardiovascular: Yes: Regular Rate and Rhythm Respiratory: Yes: Regular, CTA Bilaterally Gastrointestinal: Yes: Normal Bowel Sounds, Soft Musculoskeletal: Yes: WNL Extremities: Yes: WNL Neurological: Yes: Alert, Oriented Psychiatric: Yes: Alert, Oriented Labs: CBC, BMP 09/08/18 05:30 09/08/18 05:30 INR, PTT INR 1.15 (0.83-1.09) H 09/08/18 05:30 Assessment/Plan Problem List - Problems (1) GERD (gastroesophageal reflux disease) Code(s): K21.9 - GASTRO-ESOPHAGEAL REFLUX DISEASE WITHOUT ESOPHAGITIS (2) HLD (hyperlipidemia) Code(s): E78.5 - HYPERLIPIDEMIA, UNSPECIFIED (3) Hemoptysis Code(s): R04.2 - HEMOPTYSIS (4) Pre-diabetes Code(s): R73.03 - PREDIABETES (5) Right lower lobe pneumonia Code(s): J18.1 - LOBAR PNEUMONIA, UNSPECIFIED ORGANISM (6) Right middle lobe pneumonia Code(s): J18.1 - LOBAR PNEUMONIA, UNSPECIFIED ORGANISM Assessment/Plan Acute Hemoptysis RML/RLL PNA HTN GERD ent normal continue abx for now rest as per the team will start on probiotic
[2018-09-09] MEDS: PANTOPRAZOLE 20 MG TABLET (FP) PO SCH ×2 (09:50→22:02)
[2018-09-09] MEDS: LISINOPRIL 20 MG TABLET (FP) PO SCH (09:51)
--- NOTE | 2018-09-09 10:13 | PN ---
Progress Note (short form) - Note Progress Note: Overall decreasing blood tinged sputum. No daquan hemoptysis. No CP or SOB. Afebrile. Intake & Output 09/06/18 09/07/18 09/08/18 09/09/18 23:59 23:59 23:59 23:59 Intake Total 2064 830 1100 Balance 2064 830 1100 Last Vital Signs Temp Pulse Resp BP Pulse Ox 97.9 F 85 20 100/63 98 09/09/18 06:00 09/09/18 06:00 09/09/18 06:00 09/09/18 06:00 09/08/18 21:00 Active Medications Acetaminophen (Tylenol -) 650 mg PO Q4H PRN PRN Reason: PAIN LEVEL 1-5 Piperacillin Sod/Tazobactam (Sod 3.375 gm/ Dextrose) 50 mls @ 100 mls/hr IVPB Q8H-IV [facility]; Protocol Last Admin: 09/09/18 09:51 Dose: 100 mls/hr Lactobacillus Acidophilus (Bacid -) 1 tab PO DAILY [facility] Lisinopril (Prinivil) 20 mg PO DAILY [facility] Last Admin: 09/09/18 09:51 Dose: 20 mg Pantoprazole Sodium (Protonix -) 40 mg PO BID [facility] Last Admin: 09/09/18 09:50 Dose: 40 mg Constitutional: Yes: Awake and alert, No Distress Eyes: Yes: Conjunctiva Clear, EOM Intact HENT: Yes: Atraumatic, Normocephalic Neck: Yes: Supple, Trachea Midline Cardiovascular: Yes: Regular Rate and Rhythm Respiratory: Yes: Cough, Diminished, Rhonchi. No: Accessory Muscle Use, Rales, SOB, SOB on Exertion, Stridor, Tachypnea, Wheezes ...Inspection: Yes: WNL ...Clubbing: No Gastrointestinal: Yes: Normal Bowel Sounds, Soft Renal/: Yes: WNL Musculoskeletal: Yes: WNL Extremities: Yes: WNL Edema: No Peripheral Pulses WNL: Yes Integumentary: Yes: WNL Neurological: Yes: WNL, Alert, Oriented ...Motor Strength: WNL Psychiatric: Yes: WNL, Alert, Oriented Labs: Problem List - Problems (1) GERD (gastroesophageal reflux disease) Code(s): K21.9 - GASTRO-ESOPHAGEAL REFLUX DISEASE WITHOUT ESOPHAGITIS (2) HLD (hyperlipidemia) Code(s): E78.5 - HYPERLIPIDEMIA, UNSPECIFIED (3) Hemoptysis Code(s): R04.2 - HEMOPTYSIS (4) Pre-diabetes Code(s): R73.03 - PREDIABETES (5) Right lower lobe pneumonia Code(s): J18.1 - LOBAR PNEUMONIA, UNSPECIFIED ORGANISM (6) Right middle lobe pneumonia Code(s): J18.1 - LOBAR PNEUMONIA, UNSPECIFIED ORGANISM Assessment/Plan ABX coverage per ID Continue to monitor off systemic steroids O2 as needed At this time no need for Bronchoscopic evaluation as source most likely CAP in RML/RLL Will need to repeat CT in 6 to 8 weeks to document resolution of findings Continued smoking cessation discussed No Pulmonary contraindication for D/C planning Dr Lozada Problem List - Problems (1) GERD (gastroesophageal reflux disease) Code(s): K21.9 - GASTRO-ESOPHAGEAL REFLUX DISEASE WITHOUT ESOPHAGITIS Qualifiers: Esophagitis presence: esophagitis presence not specified Qualified Code(s) : K21.9 - Gastro-esophageal reflux disease without esophagitis (2) HLD (hyperlipidemia) Code(s): E78.5 - HYPERLIPIDEMIA, UNSPECIFIED (3) Hemoptysis Code(s): R04.2 - HEMOPTYSIS (4) Pre-diabetes Code(s): R73.03 - PREDIABETES (5) Right lower lobe pneumonia Code(s): J18.1 - LOBAR PNEUMONIA, UNSPECIFIED ORGANISM (6) Right middle lobe pneumonia Code(s): J18.1 - LOBAR PNEUMONIA, UNSPECIFIED ORGANISM
[2018-09-09] MEDS: LACTOBACILLUS ACIDOPHILUS 1 TABLET PO SCH (10:26)
--- NOTE | 2018-09-09 16:42 | PN ---
Progress Note, Physician History of Present Illness: Pt is Hemodynamically stable Decreased Hemoptysis Pt had ENT Eval Pt is having 2 loose stools - Current Medication List Current Medications: Active Medications Acetaminophen (Tylenol -) 650 mg PO Q4H PRN PRN Reason: PAIN LEVEL 1-5 Piperacillin Sod/Tazobactam (Sod 3.375 gm/ Dextrose) 50 mls @ 100 mls/hr IVPB Q8H-IV [facility]; Protocol Last Admin: 09/09/18 09:51 Dose: 100 mls/hr Lactobacillus Acidophilus (Bacid -) 1 tab PO DAILY [facility] Last Admin: 09/09/18 10:26 Dose: 1 tab Lisinopril (Prinivil) 20 mg PO DAILY [facility] Last Admin: 09/09/18 09:51 Dose: 20 mg Pantoprazole Sodium (Protonix -) 40 mg PO BID [facility] Last Admin: 09/09/18 09:50 Dose: 40 mg - Objective Vital Signs: Vital Signs Temperature 97.9 F 09/09/18 06:00 Pulse Rate 85 09/09/18 06:00 Respiratory Rate 20 09/09/18 06:00 Blood Pressure 100/63 09/09/18 06:00 O2 Sat by Pulse Oximetry (%) 98 09/08/18 21:00 Constitutional: Yes: No Distress Eyes: Yes: Conjunctiva Clear, EOM Intact HENT: Yes: Atraumatic, Normocephalic Neck: Yes: Supple, Trachea Midline Cardiovascular: Yes: Regular Rate and Rhythm, S1, S2 Respiratory: Yes: Regular, CTA Bilaterally Gastrointestinal: Yes: Normal Bowel Sounds, Soft Labs: CBC, BMP 09/08/18 05:30 09/08/18 05:30 INR, PTT INR 1.15 (0.83-1.09) H 09/08/18 05:30 Problem List - Problems (1) Right lower lobe pneumonia Code(s): J18.1 - LOBAR PNEUMONIA, UNSPECIFIED ORGANISM (2) Right middle lobe pneumonia Code(s): J18.1 - LOBAR PNEUMONIA, UNSPECIFIED ORGANISM (3) Hemoptysis Code(s): R04.2 - HEMOPTYSIS (4) Pre-diabetes Code(s): R73.03 - PREDIABETES (5) HLD (hyperlipidemia) Code(s): E78.5 - HYPERLIPIDEMIA, UNSPECIFIED (6) Fibula fracture Code(s): S82.409A - UNSP FRACTURE OF SHAFT OF UNSP FIBULA, INIT FOR CLOS FX (7) GERD (gastroesophageal reflux disease) Code(s): K21.9 - GASTRO-ESOPHAGEAL REFLUX DISEASE WITHOUT ESOPHAGITIS Qualifiers: Esophagitis presence: esophagitis presence not specified Qualified Code(s) : K21.9 - Gastro-esophageal reflux disease without esophagitis Assessment/Plan (1) Right lower lobe pneumonia Code(s): J18.1 - LOBAR PNEUMONIA, UNSPECIFIED ORGANISM (2) Right middle lobe pneumonia Code(s): J18.1 - LOBAR PNEUMONIA, UNSPECIFIED ORGANISM (3) Hemoptysis Code(s): R04.2 - HEMOPTYSIS (4) Pre-diabetes Code(s): R73.03 - PREDIABETES (5) HLD (hyperlipidemia) Code(s): E78.5 - HYPERLIPIDEMIA, UNSPECIFIED (6) Fibula fracture Code(s): S82.409A - UNSP FRACTURE OF SHAFT OF UNSP FIBULA, INIT FOR CLOS FX (7) GERD (gastroesophageal reflux disease) Code(s): K21.9 - GASTRO-ESOPHAGEAL REFLUX DISEASE WITHOUT ESOPHAGITIS Pt is hemodynamically stable Decreased Hemoptysis ENT Eval noted Pul FU appreciated spoke with ID today also
[2018-09-10] MEDS ORDERED: DEXTROSE 5%-WATER - 50 ML IVPB ONE ×3 (01:45→17:50)
[2018-09-10] MEDS ORDERED: PIPERACILLIN/TAZOBACTAM 3.375 GM VIAL IVPB ONE ×3 (01:45→17:50)
[2018-09-10] MEDS: PIPERACILLIN/TAZOB 3.375 GM 3.375 GM in DEXTROSE 5%-WATER - 50 ML IVPB SCH ×3 (02:07→18:00)
[2018-09-10 08:29] LABS: EOS % 6.8 % (0-4.5); HEMATOCRIT 26.9 % (32.4-45.2); HEMOGLOBIN 9.3 GM/dL (10.7-15.3); LYMPH % 12.5 % (8-40); MCHC 34.4 g/dl (32.0-36.0); MEAN CELL VOLUME 90.2 fl (80-96); MEAN PLT VOLUME 8.3 fl (7.5-11.1); MONO % 13.2 % (3.8-10.2); NEUT % 66.5 % (42.8-82.8); PLATELET COUNT 277 K/MM3 (134-434); RBC 2.99 M/mm3 (3.60-5.2); RDW 13.4 % (11.6-15.6); WHITE BLOOD COUNT 3.5 K/mm3 (4.0-10.0)
[2018-09-10 08:30] LABS: ANION GAP 7 MMOL/L (8-16); BLOOD UREA NITROGEN 13 mg/dL (7-18); CALCIUM 9.1 mg/dL (8.5-10.1); CHLORIDE 110 mmol/L (98-107); CO2 26 mmol/L (21-32); GLUCOSE,RANDOM 85 mg/dL (74-106); POTASSIUM 4.1 mmol/L (3.5-5.1); SODIUM 143 mmol/L (136-145)
--- NOTE | 2018-09-10 10:29 | PN ---
Progress Note, Physician - Current Medication List Current Medications: Active Medications Acetaminophen (Tylenol -) 650 mg PO Q4H PRN PRN Reason: PAIN LEVEL 1-5 Piperacillin Sod/Tazobactam (Sod 3.375 gm/ Dextrose) 50 mls @ 100 mls/hr IVPB Q8H-IV [facility]; Protocol Last Admin: 09/10/18 02:07 Dose: 100 mls/hr Lactobacillus Acidophilus (Bacid -) 1 tab PO DAILY [facility] Last Admin: 09/09/18 10:26 Dose: 1 tab Lisinopril (Prinivil) 20 mg PO DAILY [facility] Last Admin: 09/09/18 09:51 Dose: 20 mg Pantoprazole Sodium (Protonix -) 40 mg PO BID [facility] Last Admin: 09/09/18 22:02 Dose: 40 mg - Objective Vital Signs: Vital Signs Temperature 98.1 F 09/10/18 06:24 Pulse Rate 76 09/10/18 06:24 Respiratory Rate 20 09/10/18 06:24 Blood Pressure 121/56 L 09/10/18 06:24 O2 Sat by Pulse Oximetry (%) 94 L 09/09/18 09:00 Labs: CBC, BMP 09/10/18 07:00 09/10/18 07:00 INR, PTT INR 1.15 (0.83-1.09) H 09/08/18 05:30
[2018-09-10] MEDS: PANTOPRAZOLE 20 MG TABLET (FP) PO SCH ×2 (10:33→22:37)
[2018-09-10] MEDS: LACTOBACILLUS ACIDOPHILUS 1 TABLET PO SCH (10:33)
[2018-09-10] MEDS: LISINOPRIL 20 MG TABLET (FP) PO SCH (10:33)
--- NOTE | 2018-09-10 14:27 | PN ---
Progress Note (short form) - Note Progress Note: PULMONARY No CP or SOB. Afebrile. Constitutional: Yes: Awake and alert, No Distress Eyes: Yes: Conjunctiva Clear, EOM Intact HENT: Yes: Atraumatic, Normocephalic Neck: Yes: Supple, Trachea Midline Cardiovascular: Yes: Regular Rate and Rhythm Respiratory: Yes: Cough, Diminished, Rhonchi. No: Accessory Muscle Use, Rales, SOB, SOB on Exertion, Stridor, Tachypnea, Wheezes ...Inspection: Yes: WNL ...Clubbing: No Gastrointestinal: Yes: Normal Bowel Sounds, Soft Renal/: Yes: WNL Musculoskeletal: Yes: WNL Extremities: Yes: WNL Edema: No Peripheral Pulses WNL: Yes Integumentary: Yes: WNL Neurological: Yes: WNL, Alert, Oriented ...Motor Strength: WNL Psychiatric: Yes: WNL, Alert, Oriented Labs/meds/notes/images reviewed Problem List - Problems (1) GERD (gastroesophageal reflux disease) Code(s): K21.9 - GASTRO-ESOPHAGEAL REFLUX DISEASE WITHOUT ESOPHAGITIS (2) HLD (hyperlipidemia) Code(s): E78.5 - HYPERLIPIDEMIA, UNSPECIFIED (3) Hemoptysis Code(s): R04.2 - HEMOPTYSIS (4) Pre-diabetes Code(s): R73.03 - PREDIABETES (5) Right lower lobe pneumonia Code(s): J18.1 - LOBAR PNEUMONIA, UNSPECIFIED ORGANISM (6) Right middle lobe pneumonia Code(s): J18.1 - LOBAR PNEUMONIA, UNSPECIFIED ORGANISM Assessment/Plan ABX coverage per ID Continue to monitor off systemic steroids O2 as needed At this time no need for Bronchoscopic evaluation as source most likely CAP in RML/RLL Will need to repeat CT in 6 to 8 weeks to document resolution of findings Continued smoking cessation discussed No Pulmonary contraindication for D/C planning Raven TANNER MD
--- NOTE | 2018-09-10 16:10 | PN ---
Progress Note, Physician History of Present Illness: Pt is Hemodynamically stable Decreased Hemoptysis Pt had ENT Eval Pt is having 2 loose stools Pt will be going home Pt is not having any fever - Current Medication List Current Medications: Active Medications Acetaminophen (Tylenol -) 650 mg PO Q4H PRN PRN Reason: PAIN LEVEL 1-5 Piperacillin Sod/Tazobactam (Sod 3.375 gm/ Dextrose) 50 mls @ 100 mls/hr IVPB Q8H-IV [facility]; Protocol Last Admin: 09/10/18 10:32 Dose: 100 mls/hr Lactobacillus Acidophilus (Bacid -) 1 tab PO DAILY [facility] Last Admin: 09/10/18 10:33 Dose: 1 tab Lisinopril (Prinivil) 20 mg PO DAILY [facility] Last Admin: 09/10/18 10:33 Dose: 20 mg Pantoprazole Sodium (Protonix -) 40 mg PO BID [facility] Last Admin: 09/10/18 10:33 Dose: 40 mg - Objective Vital Signs: Vital Signs Temperature 98.6 F 09/10/18 10:00 Pulse Rate 100 H 09/10/18 10:00 Respiratory Rate 18 09/10/18 10:00 Blood Pressure 134/78 09/10/18 10:00 O2 Sat by Pulse Oximetry (%) 94 L 09/09/18 09:00 Constitutional: Yes: No Distress Eyes: Yes: Conjunctiva Clear HENT: Yes: Atraumatic, Normocephalic Neck: Yes: Supple, Trachea Midline Cardiovascular: Yes: Regular Rate and Rhythm, S1, S2 Respiratory: Yes: Regular, CTA Bilaterally Gastrointestinal: Yes: Normal Bowel Sounds, Soft Labs: CBC, BMP 09/10/18 07:00 09/10/18 07:00 INR, PTT INR 1.15 (0.83-1.09) H 09/08/18 05:30 Problem List - Problems (1) Right lower lobe pneumonia Code(s): J18.1 - LOBAR PNEUMONIA, UNSPECIFIED ORGANISM (2) Right middle lobe pneumonia Code(s): J18.1 - LOBAR PNEUMONIA, UNSPECIFIED ORGANISM (3) Hemoptysis Code(s): R04.2 - HEMOPTYSIS (4) Pre-diabetes Code(s): R73.03 - PREDIABETES (5) HLD (hyperlipidemia) Code(s): E78.5 - HYPERLIPIDEMIA, UNSPECIFIED (6) Fibula fracture Code(s): S82.409A - UNSP FRACTURE OF SHAFT OF UNSP FIBULA, INIT FOR CLOS FX (7) GERD (gastroesophageal reflux disease) Code(s): K21.9 - GASTRO-ESOPHAGEAL REFLUX DISEASE WITHOUT ESOPHAGITIS Qualifiers: Esophagitis presence: esophagitis presence not specified Qualified Code(s) : K21.9 - Gastro-esophageal reflux disease without esophagitis Assessment/Plan (1) Right lower lobe pneumonia Code(s): J18.1 - LOBAR PNEUMONIA, UNSPECIFIED ORGANISM (2) Right middle lobe pneumonia Code(s): J18.1 - LOBAR PNEUMONIA, UNSPECIFIED ORGANISM (3) Hemoptysis Code(s): R04.2 - HEMOPTYSIS (4) Pre-diabetes Code(s): R73.03 - PREDIABETES (5) HLD (hyperlipidemia) Code(s): E78.5 - HYPERLIPIDEMIA, UNSPECIFIED (6) Fibula fracture Code(s): S82.409A - UNSP FRACTURE OF SHAFT OF UNSP FIBULA, INIT FOR CLOS FX (7) GERD (gastroesophageal reflux disease) Code(s): K21.9 - GASTRO-ESOPHAGEAL REFLUX DISEASE WITHOUT ESOPHAGITIS Pt is hemodynamically stable Decreased Hemoptysis ENT Eval noted Pul FU appreciated Pt will have Repeat CT chest after 4 weeks
[2018-09-11] MEDS: PIPERACILLIN/TAZOB 3.375 GM 3.375 GM in DEXTROSE 5%-WATER - 50 ML IVPB SCH ×2 (02:33→10:02)
[2018-09-11] MEDS ORDERED: PIPERACILLIN/TAZOBACTAM 3.375 GM VIAL IVPB ONE (09:44)
[2018-09-11] MEDS ORDERED: DEXTROSE 5%-WATER - 50 ML IVPB ONE (09:45)
[2018-09-11] MEDS: LACTOBACILLUS ACIDOPHILUS 1 TABLET PO SCH (10:02)
[2018-09-11] MEDS: LISINOPRIL 20 MG TABLET (FP) PO SCH (10:02)
[2018-09-11] MEDS: PANTOPRAZOLE 20 MG TABLET (FP) PO SCH ×2 (10:02→21:59)
--- NOTE | 2018-09-11 10:44 | PN ---
Progress Note, Physician History of Present Illness: stable still with small amount of blood in sputum breathing well - Current Medication List Current Medications: Active Medications Acetaminophen (Tylenol -) 650 mg PO Q4H PRN PRN Reason: PAIN LEVEL 1-5 Piperacillin Sod/Tazobactam (Sod 3.375 gm/ Dextrose) 50 mls @ 100 mls/hr IVPB Q8H-IV [facility]; Protocol Last Admin: 09/11/18 10:02 Dose: 100 mls/hr Lactobacillus Acidophilus (Bacid -) 1 tab PO DAILY [facility] Last Admin: 09/11/18 10:02 Dose: 1 tab Lisinopril (Prinivil) 20 mg PO DAILY [facility] Last Admin: 09/11/18 10:02 Dose: 20 mg Pantoprazole Sodium (Protonix -) 40 mg PO BID [facility] Last Admin: 09/11/18 10:02 Dose: 40 mg - Objective Vital Signs: Vital Signs Temperature 98.5 F 09/11/18 06:00 Pulse Rate 73 09/11/18 06:00 Respiratory Rate 20 09/11/18 06:00 Blood Pressure 115/70 09/11/18 06:00 O2 Sat by Pulse Oximetry (%) 98 09/10/18 21:00 Constitutional: Yes: No Distress, Calm Cardiovascular: Yes: Regular Rate and Rhythm Respiratory: Yes: Regular, CTA Bilaterally Gastrointestinal: Yes: Normal Bowel Sounds, Soft Musculoskeletal: Yes: WNL Extremities: Yes: WNL Neurological: Yes: Alert, Oriented Psychiatric: Yes: Alert, Oriented Labs: CBC, BMP 09/10/18 07:00 09/10/18 07:00 INR, PTT INR 1.15 (0.83-1.09) H 09/08/18 05:30 Assessment/Plan Problem List - Problems (1) GERD (gastroesophageal reflux disease) Code(s): K21.9 - GASTRO-ESOPHAGEAL REFLUX DISEASE WITHOUT ESOPHAGITIS (2) HLD (hyperlipidemia) Code(s): E78.5 - HYPERLIPIDEMIA, UNSPECIFIED (3) Hemoptysis Code(s): R04.2 - HEMOPTYSIS (4) Pre-diabetes Code(s): R73.03 - PREDIABETES (5) Right lower lobe pneumonia Code(s): J18.1 - LOBAR PNEUMONIA, UNSPECIFIED ORGANISM (6) Right middle lobe pneumonia Code(s): J18.1 - LOBAR PNEUMONIA, UNSPECIFIED ORGANISM Assessment/Plan Acute Hemoptysis RML/RLL PNA HTN GERD plan will stop iv abx will switch to oral monitor at least for today that patient does not have any more gross hemoptysis if nothing then patient can home on augmentin for another 5 more days will need ct to see resolution of the issues
--- NOTE | 2018-09-11 12:31 | PN ---
Progress Note (short form) - Note Progress Note: PULMONARY No CP or SOB. minimal hemoptysis as per patient Constitutional: Yes: Awake and alert, No Distress Eyes: Yes: Conjunctiva Clear, EOM Intact HENT: Yes: Atraumatic, Normocephalic Neck: Yes: Supple, Trachea Midline Cardiovascular: Yes: Regular Rate and Rhythm Respiratory: Yes: Cough, Diminished, Rhonchi. No: Accessory Muscle Use, Rales, SOB, SOB on Exertion, Stridor, Tachypnea, Wheezes ...Inspection: Yes: WNL ...Clubbing: No Gastrointestinal: Yes: Normal Bowel Sounds, Soft Renal/: Yes: WNL Musculoskeletal: Yes: WNL Extremities: Yes: WNL Edema: No Peripheral Pulses WNL: Yes Integumentary: Yes: WNL Neurological: Yes: WNL, Alert, Oriented ...Motor Strength: WNL Psychiatric: Yes: WNL, Alert, Oriented Labs/meds/notes/images reviewed Problem List - Problems (1) GERD (gastroesophageal reflux disease) Code(s): K21.9 - GASTRO-ESOPHAGEAL REFLUX DISEASE WITHOUT ESOPHAGITIS (2) HLD (hyperlipidemia) Code(s): E78.5 - HYPERLIPIDEMIA, UNSPECIFIED (3) Hemoptysis Code(s): R04.2 - HEMOPTYSIS (4) Pre-diabetes Code(s): R73.03 - PREDIABETES (5) Right lower lobe pneumonia Code(s): J18.1 - LOBAR PNEUMONIA, UNSPECIFIED ORGANISM (6) Right middle lobe pneumonia Code(s): J18.1 - LOBAR PNEUMONIA, UNSPECIFIED ORGANISM Assessment/Plan ABX coverage per ID Continue to monitor off systemic steroids O2 as needed Will need to repeat CT in 6 to 8 weeks to document resolution of findings Continued smoking cessation discussed No Pulmonary contraindication for D/C planning Raven TANNER MD
[2018-09-11] MEDS: AMOX TR/POT CLAV 875MG/125MG TABLETS (FP) PO SCH (17:45)
--- NOTE | 2018-09-11 23:09 | PN ---
Progress Note, Physician History of Present Illness: Pt is Hemodynamically stable Decreased Hemoptysis Pt had ENT Eval Pt is having 2 loose stools Pt will be going home - Current Medication List Current Medications: Active Medications Acetaminophen (Tylenol -) 650 mg PO Q4H PRN PRN Reason: PAIN LEVEL 1-5 Amoxicillin/Clavulanate Potassium (Augmentin - 875mg Tablet) 1 tab PO BID@0800, 1730 [facility] Last Admin: 09/11/18 17:45 Dose: 1 tab Lactobacillus Acidophilus (Bacid -) 1 tab PO DAILY [facility] Last Admin: 09/11/18 10:02 Dose: 1 tab Lisinopril (Prinivil) 20 mg PO DAILY [facility] Last Admin: 09/11/18 10:02 Dose: 20 mg Pantoprazole Sodium (Protonix -) 40 mg PO BID [facility] Last Admin: 09/11/18 21:59 Dose: 40 mg - Objective Vital Signs: Vital Signs Temperature 98.5 F 09/11/18 22:00 Pulse Rate 99 H 09/11/18 22:00 Respiratory Rate 20 09/11/18 22:00 Blood Pressure 136/74 09/11/18 22:00 O2 Sat by Pulse Oximetry (%) 98 09/11/18 21:00 Constitutional: Yes: No Distress Eyes: Yes: WNL, Conjunctiva Clear Labs: CBC, BMP 09/10/18 07:00 09/10/18 07:00 INR, PTT INR 1.15 (0.83-1.09) H 09/08/18 05:30 Problem List - Problems (1) Right lower lobe pneumonia Code(s): J18.1 - LOBAR PNEUMONIA, UNSPECIFIED ORGANISM (2) Right middle lobe pneumonia Code(s): J18.1 - LOBAR PNEUMONIA, UNSPECIFIED ORGANISM (3) Hemoptysis Code(s): R04.2 - HEMOPTYSIS (4) Pre-diabetes Code(s): R73.03 - PREDIABETES (5) HLD (hyperlipidemia) Code(s): E78.5 - HYPERLIPIDEMIA, UNSPECIFIED (6) Fibula fracture Code(s): S82.409A - UNSP FRACTURE OF SHAFT OF UNSP FIBULA, INIT FOR CLOS FX (7) GERD (gastroesophageal reflux disease) Code(s): K21.9 - GASTRO-ESOPHAGEAL REFLUX DISEASE WITHOUT ESOPHAGITIS Qualifiers: Esophagitis presence: esophagitis presence not specified Qualified Code(s) : K21.9 - Gastro-esophageal reflux disease without esophagitis Assessment/Plan (1) Right lower lobe pneumonia Code(s): J18.1 - LOBAR PNEUMONIA, UNSPECIFIED ORGANISM (2) Right middle lobe pneumonia Code(s): J18.1 - LOBAR PNEUMONIA, UNSPECIFIED ORGANISM (3) Hemoptysis Code(s): R04.2 - HEMOPTYSIS (4) Pre-diabetes Code(s): R73.03 - PREDIABETES (5) HLD (hyperlipidemia) Code(s): E78.5 - HYPERLIPIDEMIA, UNSPECIFIED (6) Fibula fracture Code(s): S82.409A - UNSP FRACTURE OF SHAFT OF UNSP FIBULA, INIT FOR CLOS FX (7) GERD (gastroesophageal reflux disease) Code(s): K21.9 - GASTRO-ESOPHAGEAL REFLUX DISEASE WITHOUT ESOPHAGITIS Pt is hemodynamically stable Decreased Hemoptysis ENT Eval noted Pul FU appreciated Pt will have 7 dys of antibiotics as OP
[2018-09-12 06:06] LABS: BASO % 1.4 % (0-2.0); EOS % 5.8 % (0-4.5); HEMATOCRIT 26.8 % (32.4-45.2); HEMOGLOBIN 9.2 GM/dL (10.7-15.3); LYMPH % 10.7 % (8-40); MCH 31.1 pg (25.7-33.7); MCHC 34.5 g/dl (32.0-36.0); MEAN CELL VOLUME 90.2 fl (80-96); MEAN PLT VOLUME 8.1 fl (7.5-11.1); MONO % 13.3 % (3.8-10.2); NEUT % 68.8 % (42.8-82.8); PLATELET COUNT 278 K/MM3 (134-434); RBC 2.97 M/mm3 (3.60-5.2); WHITE BLOOD COUNT 3.8 K/mm3 (4.0-10.0)
[2018-09-12 06:15] LABS: ANION GAP 6 MMOL/L (8-16); BLOOD UREA NITROGEN 11 mg/dL (7-18); CALCIUM 8.8 mg/dL (8.5-10.1); CHLORIDE 110 mmol/L (98-107); CO2 25 mmol/L (21-32); CREATININE 0.9 mg/dL (0.55-1.3); GLUCOSE,RANDOM 93 mg/dL (74-106); POTASSIUM 4.1 mmol/L (3.5-5.1); SODIUM 141 mmol/L (136-145)
[2018-09-12] MEDS: AMOX TR/POT CLAV 875MG/125MG TABLETS (FP) PO SCH (09:05)
[2018-09-12] MEDS: LACTOBACILLUS ACIDOPHILUS 1 TABLET PO SCH (09:56)
[2018-09-12] MEDS: PANTOPRAZOLE 20 MG TABLET (FP) PO SCH (09:57)
[2018-09-12] MEDS: LISINOPRIL 20 MG TABLET (FP) PO SCH (09:57)
--- NOTE | 2018-09-12 11:59 | PN ---
Progress Note, Physician History of Present Illness: stable minimal hemoptysis - Current Medication List Current Medications: Active Medications Acetaminophen (Tylenol -) 650 mg PO Q4H PRN PRN Reason: PAIN LEVEL 1-5 Amoxicillin/Clavulanate Potassium (Augmentin - 875mg Tablet) 1 tab PO BID@0800, 1730 [facility] Last Admin: 09/12/18 09:05 Dose: 1 tab Lactobacillus Acidophilus (Bacid -) 1 tab PO DAILY [facility] Last Admin: 09/12/18 09:56 Dose: 1 tab Lisinopril (Prinivil) 20 mg PO DAILY [facility] Last Admin: 09/12/18 09:57 Dose: 20 mg Pantoprazole Sodium (Protonix -) 40 mg PO BID [facility] Last Admin: 09/12/18 09:57 Dose: 40 mg - Objective Vital Signs: Vital Signs Temperature 98.3 F 09/12/18 06:00 Pulse Rate 86 09/12/18 06:00 Respiratory Rate 20 09/12/18 06:00 Blood Pressure 147/58 L 09/12/18 06:00 O2 Sat by Pulse Oximetry (%) 98 09/11/18 21:00 Constitutional: Yes: No Distress, Calm Cardiovascular: Yes: Regular Rate and Rhythm Respiratory: Yes: Regular, CTA Bilaterally Gastrointestinal: Yes: Normal Bowel Sounds, Soft Musculoskeletal: Yes: WNL Extremities: Yes: WNL Neurological: Yes: Alert, Oriented Psychiatric: Yes: Alert, Oriented Labs: CBC, BMP 09/12/18 05:20 09/12/18 05:20 INR, PTT INR 1.15 (0.83-1.09) H 09/08/18 05:30 Assessment/Plan Problem List - Problems (1) GERD (gastroesophageal reflux disease) Code(s): K21.9 - GASTRO-ESOPHAGEAL REFLUX DISEASE WITHOUT ESOPHAGITIS (2) HLD (hyperlipidemia) Code(s): E78.5 - HYPERLIPIDEMIA, UNSPECIFIED (3) Hemoptysis Code(s): R04.2 - HEMOPTYSIS (4) Pre-diabetes Code(s): R73.03 - PREDIABETES (5) Right lower lobe pneumonia Code(s): J18.1 - LOBAR PNEUMONIA, UNSPECIFIED ORGANISM (6) Right middle lobe pneumonia Code(s): J18.1 - LOBAR PNEUMONIA, UNSPECIFIED ORGANISM Assessment/Plan Acute Hemoptysis RML/RLL PNA HTN GERD plan augmentin for [address] scan after 6 weeks monitor for hemoptysis rest as per the team
--- NOTE | 2018-09-12 12:14 | PN ---
Progress Note (short form) - Note Progress Note: PULMONARY No CP or SOB. Constitutional: Yes: Awake and alert, No Distress Eyes: Yes: Conjunctiva Clear, EOM Intact HENT: Yes: Atraumatic, Normocephalic Neck: Yes: Supple, Trachea Midline Cardiovascular: Yes: Regular Rate and Rhythm Respiratory: Yes: Cough, Diminished, Rhonchi. No: Accessory Muscle Use, Rales, SOB, SOB on Exertion, Stridor, Tachypnea, Wheezes ...Inspection: Yes: WNL ...Clubbing: No Gastrointestinal: Yes: Normal Bowel Sounds, Soft Renal/: Yes: WNL Musculoskeletal: Yes: WNL Extremities: Yes: WNL Edema: No Peripheral Pulses WNL: Yes Integumentary: Yes: WNL Neurological: Yes: WNL, Alert, Oriented ...Motor Strength: WNL Psychiatric: Yes: WNL, Alert, Oriented Labs/meds/notes/images reviewed Problem List - Problems (1) GERD (gastroesophageal reflux disease) Code(s): K21.9 - GASTRO-ESOPHAGEAL REFLUX DISEASE WITHOUT ESOPHAGITIS (2) HLD (hyperlipidemia) Code(s): E78.5 - HYPERLIPIDEMIA, UNSPECIFIED (3) Hemoptysis Code(s): R04.2 - HEMOPTYSIS (4) Pre-diabetes Code(s): R73.03 - PREDIABETES (5) Right lower lobe pneumonia Code(s): J18.1 - LOBAR PNEUMONIA, UNSPECIFIED ORGANISM (6) Right middle lobe pneumonia Code(s): J18.1 - LOBAR PNEUMONIA, UNSPECIFIED ORGANISM O2 not needed 98% on r/a Will need to repeat CT in 6 to 8 weeks to document resolution of findings Continued smoking cessation discussed No Pulmonary contraindication for D/C planning Raven TANNER MD
--- NOTE | 2018-09-12 12:35 | PN ---
Progress Note, Physician History of Present Illness: Pt is Hemodynamically stable Decreased Hemoptysis Pt will be going home today - Current Medication List Current Medications: Active Medications Acetaminophen (Tylenol -) 650 mg PO Q4H PRN PRN Reason: PAIN LEVEL 1-5 Amoxicillin/Clavulanate Potassium (Augmentin - 875mg Tablet) 1 tab PO BID@0800, 1730 [facility] Last Admin: 09/12/18 09:05 Dose: 1 tab Lactobacillus Acidophilus (Bacid -) 1 tab PO DAILY [facility] Last Admin: 09/12/18 09:56 Dose: 1 tab Lisinopril (Prinivil) 20 mg PO DAILY [facility] Last Admin: 09/12/18 09:57 Dose: 20 mg Pantoprazole Sodium (Protonix -) 40 mg PO BID [facility] Last Admin: 09/12/18 09:57 Dose: 40 mg - Objective Vital Signs: Vital Signs Temperature 98.3 F 09/12/18 06:00 Pulse Rate 86 09/12/18 06:00 Respiratory Rate 20 09/12/18 06:00 Blood Pressure 147/58 L 09/12/18 06:00 O2 Sat by Pulse Oximetry (%) 98 09/11/18 21:00 Constitutional: Yes: No Distress, Calm Eyes: Yes: Conjunctiva Clear, EOM Intact HENT: Yes: Atraumatic, Normocephalic Cardiovascular: Yes: Regular Rate and Rhythm, S1, S2 Respiratory: Yes: Regular, CTA Bilaterally Gastrointestinal: Yes: Normal Bowel Sounds, Soft Edema: No Labs: CBC, BMP 09/12/18 05:20 09/12/18 05:20 INR, PTT INR 1.15 (0.83-1.09) H 09/08/18 05:30 Problem List - Problems (1) Right lower lobe pneumonia Code(s): J18.1 - LOBAR PNEUMONIA, UNSPECIFIED ORGANISM (2) Right middle lobe pneumonia Code(s): J18.1 - LOBAR PNEUMONIA, UNSPECIFIED ORGANISM (3) Hemoptysis Code(s): R04.2 - HEMOPTYSIS (4) Pre-diabetes Code(s): R73.03 - PREDIABETES (5) HLD (hyperlipidemia) Code(s): E78.5 - HYPERLIPIDEMIA, UNSPECIFIED (6) Fibula fracture Code(s): S82.409A - UNSP FRACTURE OF SHAFT OF UNSP FIBULA, INIT FOR CLOS FX (7) GERD (gastroesophageal reflux disease) Code(s): K21.9 - GASTRO-ESOPHAGEAL REFLUX DISEASE WITHOUT ESOPHAGITIS Qualifiers: Esophagitis presence: esophagitis presence not specified Qualified Code(s) : K21.9 - Gastro-esophageal reflux disease without esophagitis Assessment/Plan (1) Right lower lobe pneumonia Code(s): J18.1 - LOBAR PNEUMONIA, UNSPECIFIED ORGANISM (2) Right middle lobe pneumonia Code(s): J18.1 - LOBAR PNEUMONIA, UNSPECIFIED ORGANISM (3) Hemoptysis Code(s): R04.2 - HEMOPTYSIS (4) Pre-diabetes Code(s): R73.03 - PREDIABETES (5) HLD (hyperlipidemia) Code(s): E78.5 - HYPERLIPIDEMIA, UNSPECIFIED (6) Fibula fracture Code(s): S82.409A - UNSP FRACTURE OF SHAFT OF UNSP FIBULA, INIT FOR CLOS FX (7) GERD (gastroesophageal reflux disease) Code(s): K21.9 - GASTRO-ESOPHAGEAL REFLUX DISEASE WITHOUT ESOPHAGITIS Pt will go home Augmentin BID for [address] chest after 4 weeks FU with ID
--- NOTE | 2018-09-12 12:42 | DS ---
Physical Examination Vital Signs: Vital Signs Temperature 98.3 F 09/12/18 06:00 Pulse Rate 86 09/12/18 06:00 Respiratory Rate 20 09/12/18 06:00 Blood Pressure 147/58 L 09/12/18 06:00 O2 Sat by Pulse Oximetry (%) 98 09/11/18 21:00 Constitutional: Yes: Well Nourished Eyes: Yes: Conjunctiva Clear HENT: Yes: Atraumatic, Normocephalic Neck: Yes: Supple, Trachea Midline Labs: CBC, BMP 09/12/18 05:20 09/12/18 05:20 Discharge Summary Reason For Visit: RIGHT MIDDLE LOBE PNEUMONIA HEMOTYSIS Current Active Problems Anemia (Acute) GERD (gastroesophageal reflux disease) (Acute) HLD (hyperlipidemia) (Acute) Hemoptysis (Acute) Hypertension (Acute) Occult blood in stools (Acute) Pre-diabetes (Acute) Right lower lobe pneumonia (Acute) Right middle lobe pneumonia (Acute) Hospital Course: Pt was Rx for RML and RLL Pneumonia Seen By PUlmonary, ID, ENT no Malignacy PPD Negative Condition: Stable - Instructions Disposition: HOME - Home Medications Comprehensive Discharge Medication List: Ambulatory Orders Lisinopril 20 mg PO ASDIR 09/03/18 [place] 875 PO BID 7days Bacid One PO BID [address] Maddox in office in one week
[2018-09-12 13:33] VITALS: BP 134/84; PULSE 103; TEMP 209.1
== END 2018-09-12 14:54 | disposition home or self-care (01) | DRG 194 ==
LOC: JER 04:12 → JERBED 07:41 → J8W 22:37
PROVIDERS: ADMIT Internal Medicine; ATTEND Internal Medicine
PROC: 0CJS8ZZ Inspection of Larynx, Via Natural or Artificial Opening Endoscopic (ICD-10-PCS; principal; 2018-09-08)
DX: J18.1 Lobar pneumonia, unspecified organism (principal); R04.2 Hemoptysis; R73.03 Prediabetes; K21.9 Gastro-esophageal reflux disease without esophagitis; E78.5 Hyperlipidemia, unspecified; I10 Essential (primary) hypertension; R19.5 Other fecal abnormalities; D64.9 Anemia, unspecified; J31.0 Chronic rhinitis; J34.3 Hypertrophy of nasal turbinates
CPT/HCPCS: 36415; 70486-TC; 71045-TC-FY; 71046-TC-FY; 71275-TC; 80048; 80053; 83605; 85025; 85610; 85651; 85730; 86738; 86850; 86900; 86901; 87040; 87070; 87205; 87899; 93005; 93010; 99284-25; J7030